=== PATIENT | female | born 1960 | race Caucasian/White ===

== ENCOUNTER 2022-07-12 06:39 | Outpatient (CLI) | payer BC, SELFPAY ==
--- NOTE | ~2022-07-12 | US_ITS ---
US art doppler w press LE BI INDICATION: Peripheral vascular disease TECHNIQUE: Segmental pressures and plethysmographic and Doppler waveforms of the brachial and lower e xtremity arteries were obtained. COMPARISON: None. FINDINGS: Right and left brachial artery pressures of 144 mm Hg and 148 mm Hg, respectively, are concordant (no rmal difference <= 30 mmHg). The right ankle-brachial index (SOTO) is 1.1 (normal >= 0.9-1.0). The right great toe-brachial index ( TBI) is 0.55 (normal >= 0.60). The left SOTO is 1.1. The left TBI is 0.74. IMPRESSION: 1. Normal bilateral ankle-brachial indices. 2: Mildly decreased right toe brachial index measuring 0.55, consistent with mild peripheral arteria l disease. Reviewed, dictated and finalized at location A. IMPRESSION: 1. Normal bilateral ankle-brachial indices. 2: Mildly decreased right toe brachial index measuring 0.55, consistent with m ild peripheral arterial disease.
--- NOTE | ~2022-07-12 | CT_ITS ---
EXAMINATION: CT abdomen pelvis w con DATE: 07/12/2022 08:03 INDICATION: Hernia right lower abdomen. Abdomen pain. TECHNIQUE: Computed tomography (CT) of the abdomen and pelvis was performed with 100 cc Omnipaque 350 intravenous contrast. The dose-length product was 454.30 mGy-cm. Automated exposure control and iter ative reconstruction technique were employed. COMPARISON: No prior studies for comparison. FINDINGS: Lung bases are unremarkable. Heart size normal. No significant pleural or pericardial effus ion. There are [place] hernia is of the right lower abdominal wall and the umbilical region. The co jayne abuts the right lateral abdominal wall hernia without evidence for obstruction. Nodular appearance to the liver surface, consistent with cirrhosis. Gallbladder contains stones. Ther e are calcified granulomas of the spleen. There is an accessory splenule. The adrenal glands and kidn eys are unremarkable. Gallbladder is present. No free air or free fluid. Nonobstructive bowel pattern with moderate colonic fecal loading. No significant vascular abnormality. No lymphadenopathy. Mild l umbar spondylosis. No acute osseous abnormality. IMPRESSION: 1. Ventral hernias right lower abdomen lateral to the umbilicus as well as a second hernia at the umb ilicus. Both hernias are [place]. The colon abuts the lateral hernia without evidence for obstructi on. 2: Cholelithiasis. 3.: Cirrhosis of the liver. Reviewed, dictated and finalized at location A. IMPRESSION: 1. Ventral hernias right lower abdomen lateral to the umbilicus as well as a se cond hernia at the umbilicus. Both hernias are [place]. The colon abuts the l ateral hernia without evidence for obstruction. 2: Cholelithiasis. 3.: Cirrhosis of the liver.
[2022-07-12 07:16] LABS: Estimated Glomerular Filt Rate > 60
== END 2022-07-12 06:40 | disposition home or self-care (01) ==
PROVIDERS: PCP Emergency Medicine; Visit Provider Emergency Medicine
DX: R10.9 Unspecified abdominal pain (principal); K43.9 Ventral hernia without obstruction or gangrene; K80.20 Calculus of gallbladder without cholecystitis without obstruction; K74.60 Unspecified cirrhosis of liver
CPT/HCPCS: 74177; 93923; Q9967

== ENCOUNTER 2022-08-07 09:54 | Outpatient (CLI) | payer BC, SELFPAY ==
--- NOTE | ~2022-08-07 | NM_ITS ---
EXAMINATION: NM hepatobiliary wo pharm DATE: 08/07/2022 12:54 INDICATION: Assess for chronic cholecystitis COMPARISON: None. TECHNIQUE: 4.9 mCi Tc-99m mebrofenin (Choletec) was administered intravenously. Scintigraphic images of the abdomen were obtained for one hour. At the 1 hour time point, the patient drank 8 oz Ensure, and imaging was continued for 60 minutes. Gallbladder ejection fraction was calculated by the technol ogist. FINDINGS: There is normal clearance of radiotracer from the blood pool. There is homogeneous tracer u ptake by the liver. Activity progresses to the bowel and gallbladder. The gallbladder ejection fract ion (GBEF) is 66%. Note that with this technique, normal GBEF >= 33%. IMPRESSION: 1. Normal hepatobiliary scan Reviewed, dictated and finalized at location A.
== END 2022-08-07 09:55 | disposition home or self-care (01) ==
PROVIDERS: PCP Emergency Medicine; Visit Provider Surgery
DX: K81.1 Chronic cholecystitis (principal)
CPT/HCPCS: 78226; A9537

== ENCOUNTER 2022-10-20 10:34 | Emergency (ER) | payer BC, SELFPAY ==
--- NOTE | ~2022-10-20 | XR_ITS ---
EXAMINATION: XR foot RT min 3V DATE: 10/20/2022 11:41 INDICATION: Right foot injury and pain. TECHNIQUE: 4 views of right foot were obtained. COMPARISON: None. FINDINGS: There is an intra-articular fracture of lateral head of second proximal phalanx in near-galina tomic alignment. There is mild osteoarthritis of some of the interphalangeal joints and midfoot joint s. There is an enthesophyte at plantar aspect of calcaneal tuberosity. IMPRESSION: 1. Intra-articular fracture of head of second proximal phalanx. Reviewed, dictated and finalized at location A. MAN
[2022-10-20 10:52] VITALS: BP 131/78; PULSE 102; RESP 20; TEMP 36.2; O2SAT 100
--- NOTE | 2022-10-20 12:34 | ED.LOWEXIN ---
HPI - Extremity Injury (Lower) General Chief Complaint: Extremity Injury, Lower Stated Complaint: Broken toe Time Seen by Provider: 10/20/22 11:19 History of Present Illness HPI Narrative: 62-year-old female with a history of diet-controlled diabetes and peripheral neuropathy in her lower extremities presents to the emergency room for evaluation of pain to her right second toe, swelling and a draining blister. Patient states 2 weeks ago she fell off a ladder and injured her toe. Has been splinting it with gauze and athletic tape. States that she noticed a blister appear yesterday and began draining purulent drainage this morning. Also notes some streaking at the base of the toe. Patient has peripheral neuropathy and has no pain associated with her injury. Related Data Allergies Allergy/AdvReac Type Severity Reaction Status Date / Time Penicillins Allergy Mild Rash Verified 10/17/22 08:30 Review of Systems Review of Systems: CONSTITUTIONAL: Denies fever, chills, or sweats. EYES: Denies visual changes, redness, or discharge. ENT: Denies rhinorrhea, congestion, sore throat, or otalgia. CARDIOVASCULAR: Denies chest pain, palpitations, or edema. RESPIRATORY: Denies cough or dyspnea. GASTROINTESTINAL: Denies abdominal pain, nausea, vomiting, or diarrhea. GENITOURINARY: Denies dysuria or hematuria. SKIN: Denies rash or itching. MUSCULOSKELETAL: Denies back pain, joint pain, or myalgia. NEUROLOGIC: Denies headache, numbness, dizziness, or weakness. PSYCHIATRIC: Denies anxiety or depression. [facility] Past Medical History Medical History Cancer Melanoma on foot Diabetes Surgical History Surgical History H/O: hysterectomy History of removal of ovarian cyst Hx of foot surgery Family History Family History Other Breast cancer Diabetes mellitus Social History Social History Smoking status: Former smoker Tobacco type: cigarettes Smoking end date: 10/20/09 Additional smoking assessment comments: 2 ppd x 35 years Alcohol intake: current Spiritual care concerns: No Exam Narrative: GENERAL: Well-appearing, well-nourished, no physical limitations, and in no acute distress. HEAD: Normocephalic, atraumatic. EYES: Conjunctivae normal, PERRLA and EOMI. CHEST: Clear to auscultation. No respiratory distress. No wheezes rales or rhonchi. HEART: Regular rate and rhythm. No murmur heard. Normal peripheral pulses. EXTREMITIES: right toe: NTTP with erythema and swelling over the PIP joint. Bulla noted to medial surface of 2nd digit with minimal lymphangitic spread approximately. Neurovascular is intact distally. SKIN: Warm, dry, no rash. No noted wounds NEURO: No focal deficits. Alert and oriented x3. MAEW. CN's II-XI intact bilaterally, normal gait PSYCH: Cooperative. Normal mood and affect. Course Vital Signs Vital signs: Vital Signs Temperature 36.2 C L 10/20/22 10:52 Pulse Rate 102 H 10/20/22 10:52 Respiratory Rate 10/20/22 10:52 Blood Pressure 131/78 10/20/22 10:52 Pulse Oximetry 10/20/22 10:52 Oxygen Delivery Room Air 10/20/22 10:52 Temperature 36.2 C L 10/20/22 10:52 Pulse Rate 102 H 10/20/22 10:52 Respiratory Rate 10/20/22 10:52 Blood Pressure 131/78 10/20/22 10:52 Pulse Oximetry 10/20/22 10:52 Oxygen Delivery Room Air 10/20/22 10:52 Discharge Plan Discharge Clinical Impression: Cellulitis of toe of right foot, Fracture of right toe Patient Disposition: Home, Self-Care Condition: Stable Instructions: Antibiotic Form, Cellulitis (ED) Prescriptions: New sulfamethoxazole-trimethoprim 800-160 mg tablet 2 tablet PO Q12H Qty: 28 0RF No Action gabapentin [Neurontin] 300 mg capsule 300 mg PO DAILY Qty: 30 2
== END 2022-10-20 13:14 | disposition home or self-care (01) ==
PROVIDERS: Emergency Provider Nurse Practitioner Family; PCP Emergency Medicine
DX: L03.031 Cellulitis of right toe (principal); S92.511A Displaced fracture of proximal phalanx of right lesser toe(s), initial encounter for closed fracture; E11.42 Type 2 diabetes mellitus with diabetic polyneuropathy; Z90.710 Acquired absence of both cervix and uterus; Z85.820 Personal history of malignant melanoma of skin; Z87.891 Personal history of nicotine dependence; W11.XXXA Fall on and from ladder, initial encounter
CPT/HCPCS: 73630; 99283

== ENCOUNTER 2022-10-22 10:23 | Outpatient (CLI) | payer BC, SELFPAY ==
--- NOTE | 2022-10-22 10:33 | ECG_ITS ---
Measurements Intervals [place] Rate: 87 P: 58 ND: 145 QRS: -52 QRSD: 107 T: 30 QT: 398 QTc: 481 Interpretive Statements SINUS RHYTHM INCOMPLETE RIGHT BUNDLE BRANCH BLOCK LEFT ANTERIOR FASCICULAR BLOCK CANNOT RULE OUT SEPTAL INFARCT, AGE INDETERMINATE BORDERLINE T WAVE ABNORMALITY- INFERIOR LEADS ABNORMAL ECG NO PREVIOUS ECG AVAILABLE FOR COMPARISON Electronically Signed On 10-22-2022 11:48:10 SURGICAL INSTRUMENT MECHANIC by Rajat Rubin D.O.
[2022-10-22 11:03] LABS: Anion Gap 5 mmol/L (8-16); Blood Urea Nitrogen 16 mg/dL (7-17); Calcium 8.8 mg/dL (8.4-10.2); Carbon Dioxide 30 mmol/L (22-30); Chloride 95 mmol/L (98-107); Estimated Glomerular Filt Rate > 60; Glucose 363 mg/dL (65-110); Potassium 5.4 mmol/L (3.4-5.0); Sodium 130 mmol/L (137-145)
== END 2022-10-22 10:24 | disposition home or self-care (01) ==
LOC: ANHSURGERY 10:27
PROVIDERS: Anesthesiology; PCP Emergency Medicine; Visit Provider Surgery
DX: Z01.818 Encounter for other preprocedural examination (principal); K43.2 Incisional hernia without obstruction or gangrene; E11.9 Type 2 diabetes mellitus without complications; I45.2 Bifascicular block; R94.31 Abnormal electrocardiogram [ECG] [EKG]
CPT/HCPCS: 36415; 80048; 86850; 86900; 86901; 93005

== ENCOUNTER 2022-11-04 10:42 | Outpatient (CLI) | payer BC, SELFPAY ==
[2022-11-04 11:12] LABS: Alanine Aminotransferase 39 U/L (6-35); Albumin Level 4.3 g/dL (3.5-5.1); Alkaline Phosphatase 160 U/L (38-126); Anion Gap 5 mmol/L (8-16); Aspartate Amino Transferase 40 U/L (14-36); Blood Urea Nitrogen 12 mg/dL (7-17); Calcium 8.9 mg/dL (8.4-10.2); Carbon Dioxide 30 mmol/L (22-30); Chloride 95 mmol/L (98-107); Cholesterol 246 mg/dL (0-200); Estimated Glomerular Filt Rate > 60; Glucose 330 mg/dL (65-110); HDL Direct 57 mg/dL; Potassium 4.2 mmol/L (3.4-5.0); Sodium 130 mmol/L (137-145); Triglycerides 115 mg/dL (<150)
[2022-11-04 11:23] LABS: LDL Cholesterol Direct 138 mg/dL
[2022-11-04 11:34] LABS: Hemoglobin A1C 11.6 % (<5.7)
== END 2022-11-04 10:43 | disposition home or self-care (01) ==
LOC: ANHLAB 10:43
PROVIDERS: PCP Emergency Medicine; Visit Provider Emergency Medicine
DX: E11.9 Type 2 diabetes mellitus without complications (principal); I10 Essential (primary) hypertension
CPT/HCPCS: 36415; 80053; 80061; 83036

== ENCOUNTER 2022-12-20 07:35 | Outpatient (RCR) | payer BC, SELFPAY ==
[2022-11-12 12:30] VITALS: BMI 22.9
== END 2023-02-03 13:19 | disposition home or self-care (01) ==
LOC: ANHWOC 07:35
PROVIDERS: PCP Emergency Medicine; Visit Provider Emergency Medicine
DX: E13.621 Other specified diabetes mellitus with foot ulcer (principal); L97.509 Non-pressure chronic ulcer of other part of unspecified foot with unspecified severity
CPT/HCPCS: 99213; 99214; A9270; G0463

== ENCOUNTER 2023-02-11 09:27 | Outpatient (CLI) | payer BC, SELFPAY ==
[2023-02-11 10:09] LABS: Hemoglobin A1C 5.7 % (<5.7)
== END 2023-02-11 09:28 | disposition home or self-care (01) ==
LOC: ANHLAB 09:28
PROVIDERS: PCP Emergency Medicine; Visit Provider Emergency Medicine
DX: E11.9 Type 2 diabetes mellitus without complications (principal)
CPT/HCPCS: 36415; 83036

== ENCOUNTER 2023-04-01 11:00 | Outpatient (RCR) | payer BC, MEDICARE, SELFPAY ==
[2023-04-01 10:47] VITALS: BMI 22.1
[2023-04-01 11:50] VITALS: BMI 22.1
== END 2023-05-26 10:45 | disposition home or self-care (01) ==
LOC: ANHDMC 11:00
PROVIDERS: PCP Emergency Medicine; Visit Provider Internal Medicine Endocrinology, Diabetes & Metabolism
DX: E11.65 Type 2 diabetes mellitus with hyperglycemia (principal); Z71.3 Dietary counseling and surveillance; Z71.89 Other specified counseling
CPT/HCPCS: 97802; G0108

== ENCOUNTER 2023-07-15 07:39 | Outpatient (CLI) | payer BC, MEDICARE, SELFPAY ==
[2023-07-15 08:54] LABS: Alanine Aminotransferase 39 U/L (6-35); Albumin Level 4.4 g/dL (3.5-5.1); Alkaline Phosphatase 104 U/L (38-126); Anion Gap 5 mmol/L (8-16); Aspartate Amino Transferase 44 U/L (14-36); Bilirubin,Total 0.8 mg/dL (0.2-1.3); Blood Urea Nitrogen 21 mg/dL (7-17); Calcium 9.1 mg/dL (8.4-10.2); Carbon Dioxide 31 mmol/L (22-30); Chloride 102 mmol/L (98-107); Cholesterol 225 mg/dL (0-200); Estimated Glomerular Filt Rate > 60; Glucose 121 mg/dL (65-110); HDL Direct 71 mg/dL; Sodium 138 mmol/L (137-145); Triglycerides 93 mg/dL (<150)
[2023-07-15 09:05] LABS: LDL Cholesterol Direct 115 mg/dL
[2023-07-18 10:30] LABS: Vitamin D 1,25 (OH)2 Total 28 pg/mL (18-72); Vitamin D2 1,25 (OH)2 <8 pg/mL; Vitamin D3 1,25 (OH)2 28 pg/mL
== END 2023-07-15 07:40 | disposition home or self-care (01) ==
PROVIDERS: PCP Emergency Medicine; Referring Provider Internal Medicine Endocrinology, Diabetes & Metabolism; Visit Provider Emergency Medicine
DX: E55.9 Vitamin D deficiency, unspecified (principal); E11.9 Type 2 diabetes mellitus without complications; Z13.220 Encounter for screening for lipoid disorders
CPT/HCPCS: 36415; 80053; 80061; 82652

== ENCOUNTER 2023-09-19 08:39 | Outpatient (CLI) | payer BC, MEDICARE, SELFPAY ==
[2023-09-19 09:30] LABS: Alanine Aminotransferase 36 U/L (6-35); Albumin Level 4.3 g/dL (3.5-5.1); Alkaline Phosphatase 107 U/L (38-126); Anion Gap 8 mmol/L (8-16); Aspartate Amino Transferase 44 U/L (14-36); Bilirubin,Total 0.8 mg/dL (0.2-1.3); Blood Urea Nitrogen 16 mg/dL (7-17); Calcium 9.2 mg/dL (8.4-10.2); Carbon Dioxide 28 mmol/L (22-30); Chloride 104 mmol/L (98-107); Cholesterol 213 mg/dL (0-200); Estimated Glomerular Filt Rate > 60; Glucose 113 mg/dL (65-110); HDL Direct 63 mg/dL; Potassium 4.2 mmol/L (3.4-5.0); Sodium 140 mmol/L (137-145); Triglycerides 74 mg/dL (<150)
[2023-09-19 09:41] LABS: LDL Cholesterol Direct 105 mg/dL
[2023-09-19 10:18] LABS: Vitamin D 25 Hydroxy 37.6 ng/mL
== END 2023-09-19 08:40 | disposition home or self-care (01) ==
PROVIDERS: PCP Emergency Medicine; Visit Provider Emergency Medicine
DX: E55.9 Vitamin D deficiency, unspecified (principal); E11.9 Type 2 diabetes mellitus without complications; E78.5 Hyperlipidemia, unspecified
CPT/HCPCS: 36415; 80053; 80061; 82306; 83036

== ENCOUNTER 2023-10-21 13:24 | Emergency (ER) | payer BC, MEDICARE, SELFPAY ==
[2023-10-21 13:36] VITALS: BP 148/80; PULSE 81; RESP 16; TEMP 36.4; O2SAT 100
--- NOTE | 2023-10-21 16:14 | ED.NAVMDI ---
HPI - Nausea/Vomiting/Diarrhea General Chief complaint: Nausea/Vomiting/Diarrhea Stated complaint: diarrhea x7days Time Seen by Provider: 10/21/23 16:14 Source: patient and family Mode of arrival: ambulatory Limitations: no limitations History of Present Illness HPI Narrative: PATIENT IS 63 YEARS OLD WHITE FEMALE CAME TO THE EMERGENCY ROOM BY PRIVATE CAR WITH HER COMPLAINING OF DIARRHEA FOR THE LAST 7 DAYS ON AVERAGE 3 TO 7 TIMES A DAY, WATERY STOOL, BROWN, DENIES ANY BLOOD IN IT, FEVER, CHILLS, NAUSEA, VOMITING OR ABDOMINAL PAIN INTERMITTENT LOWER ABDOMINAL CRAMPS Related Data Home Medications Medication Instructions Recorded Confirmed biotin 1,000 mcg chewable tablet 5,000 mcg PO DAILY 10/10/23 10/10/23 glimepiride 1 mg tablet 0.5 mg PO QAM 10/10/23 10/10/23 multivitamin (Daily Multi-Vitamin 1 tablet PO DAILY 10/10/23 10/10/23 tablet) Allergies Allergy/AdvReac Type Severity Reaction Status Date / Time metformin Allergy Intermediate Diarrhea Verified 10/10/23 10:49 Penicillins Allergy Mild Rash Verified 10/10/23 10:49 glimepiride AdvReac Intermediate Headache Verified 10/10/23 10:49 PMFSH Past Medical History Medical History Cancer Melanoma on foot Diabetes Surgical History Surgical History H/O: hysterectomy History of removal of ovarian cyst Hx of foot surgery Family History Family History Other Breast cancer Diabetes mellitus Social History Social History Smoking status: Former smoker Tobacco type: cigarettes Smoking end date: 10/20/09 Additional smoking assessment comments: 2 ppd x 35 years Alcohol intake: current Do You Feel Safe in your Home?: Yes Lack of Transportation: No Lack of Food: Never True Current Housing: I Have Housing Concerned About Future Housing: No Difficulty Paying Gas/Electric Bills: No Difficulty Paying for Meds: No Currently Unemployed: No Education: High School Diploma/GED Living arrangements: with family Spiritual care concerns: No Course Vital Signs Vital signs: Vital Signs Temperature 36.4 C L 01/02/24 13:36 Pulse Rate 81 10/21/23 13:36 Respiratory Rate 16 10/21/23 13:36 Blood Pressure 148/80 H 10/21/23 13:36 Pulse Oximetry 100 10/21/23 13:36 Oxygen Delivery Room Air 10/21/23 13:36 Temperature 36.6 C 10/21/23 17:30 Pulse Rate 83 10/21/23 17:30 Respiratory Rate 18 10/21/23 17:30 Blood Pressure 145/83 H 10/21/23 17:30 Pulse Oximetry 98 10/21/23 17:30 Oxygen Delivery Room Air 10/21/23 13:36 MDM - Nausea/Vomiting/Diarrhea MDM Narrative Medical decision making narrative: PATIENT CAME TO THE ED WITH INTERMITTENT DIARRHEA OVER THE LAST 7 DAYS VITAL SIGNS ARE STABLE PHYSICAL EXAMINATION IS UNREMARKABLE DIFFERENTIAL DIAGNOSIS DEHYDRATION, ELECTROLYTE IMBALANCE, STRESS RELATED DIARRHEA. WORKUP TODAY SHOWED NO ACUTE ABNORMALITY TO EXPLAIN PATIENT CONDITION. PATIENT WILL BE ADVISED TO TAKE IMODIUM NEEDED, TO CONTACT DR. ANDERS FOR FOLLOW-UP. AND TO ENCOURAGE FLUID INTAKE. THE PT WAS DISCHARGED TO HOME.THE PT,S CONDITION UPON DISCHARGE WAS FAIR,EDUCATION WAS PROVIDED TO THE PT IN REFERENCE TO THE FINAL IMPRESSION,DISCHARGE STUDY RESULTS,TREATMENT,PROGNOSIS AND NEED FOR FOLLOW UP . Differential Diagnosis Differential diagnosis: Likely other ( ABOVE) Medical Records Attestation: I reviewed the patient's medical records. Lab Data Attestation: I reviewed the patient's lab results. 10/21/23 16:56 10/21/23 16:56 Labs: Lab Results 10/21/23 10/21/23 Range/Units 16:41 16:56 WBC 4.2 L (4.5-10.0) K/mm3 RBC 4.84 (4.2-5.4) M/mm3 Hgb 14.4 (12.0-15.0) g/dL Hct 42.8 (37.0-47.0) % MCV 88.4 (80-100) fl [facility]
[2023-10-21 16:36] VITALS: BP 157/93; PULSE 91
[2023-10-21 16:38] VITALS: BP 137/95; PULSE 92
[2023-10-21 16:39] VITALS: BP 120/78; PULSE 98
[2023-10-21 16:56] LABS: Appearance Urine Clear (Clear); Bacteria Urine None Seen /hpf; Bilirubin Urine Negative (Negative); Blood Urine Negative (Negative); Color Urine Yellow (Yellow); Glucose Urine UA Negative (Negative); Ketones Urine 1+ mg/dL (Negative); Leukocyte Esterase Ur 1+ LEU/UL (Negative); Nitrate Urine Negative (Negative); Non Pathogenic Casts 0-2; Protein Urine Negative (Negative); RBC Urine 0-2 /hpf (0-2); Specific Grav Ur 1.018 (1.001-1.035); Squamous Epithelial Cell Urine Occasional /hpf (Few); Urobilinogen Urine 0.2 mg/dL (<2.0); pH Urine 5.5 (5.0-9.0)
[2023-10-21 16:58] LABS: Add Urine Microscopic? YES
[2023-10-21 17:05] LABS: Basophils Percent Auto 0.2 % (0.2-1.2); Eosinophils Absolute Auto 0.1 K/mm3 (0-0.3); Eosinophils Percent Auto 3.1 % (0-4.4); Hematocrit 42.8 % (37.0-47.0); Hemoglobin 14.4 g/dL (12.0-15.0); Immature Granulocyte Absolute 0.01 K/mm3 (0.00-0.031); Immature Granulocyte Percent A 0.2 % (0-0.5); Immature Platelet Fraction Pct 2.7 % (0.9-11.2); Lymphocytes Absolute Auto 1.06 K/mm3 (0.9-3.2); Lymphocytes Percent Auto 25.5 % (18.3-44.2); Mean Corpuscular HGB Conc 33.6 g/dl (32-36); Mean Corpuscular Hemoglobin 29.8 pg (26-34); Mean Corpuscular Volume 88.4 fl (80-100); Mean Platelet Volume 9.9 fl (7.4-10.4); Monocytes Absolute Auto 0.3 K/mm3 (0.1-0.6); Monocytes Percent Auto 7.9 % (2.6-8.5); Neutrophils Absolute Auto 2.6 K/mm3 (1.3-6.7); Neutrophils Percent Auto 63.1 % (45.5-73.1); Platelet Count Result 109 k/mm3 (150-375); Red Blood Count 4.84 M/mm3 (4.2-5.4); Red Cell Distribution Width 12.9 % (11.5-14.5); White Blood Count 4.2 K/mm3 (4.5-10.0)
[2023-10-21 17:12] LABS: Alanine Aminotransferase 28 U/L (6-35); Alkaline Phosphatase 90 U/L (38-126); Anion Gap 7 mmol/L (8-16); Aspartate Amino Transferase 40 U/L (14-36); Bilirubin,Total 0.9 mg/dL (0.2-1.3); Blood Urea Nitrogen 14 mg/dL (7-17); Calcium 8.7 mg/dL (8.4-10.2); Carbon Dioxide 28 mmol/L (22-30); Chloride 103 mmol/L (98-107); Estimated CRCL calculation 86 ml/min; Estimated Glomerular Filt Rate > 60; Glucose 85 mg/dL (65-110); Lipase 139 U/L (23-300); Sodium 138 mmol/L (137-145)
[2023-10-21] MEDS: SODIUM CHLORIDE 0.9% IV 1,000 ML 999 ML IV CONT (17:26)
[2023-10-21 17:30] VITALS: BP 145/83; PULSE 83; RESP 18; TEMP 36.6; O2SAT 98
[2023-10-21 17:40] LABS: Influenza A QL RT-PCR Negative (Negative); Influenza B QL RT-PCR Negative (Negative); RSV RNA, RT-PCR Negative (Negative); SARS-CoV-2 RNA PCR Negative (Negative)
[2023-10-21 18:39] VITALS: BP 149/83; PULSE 82; RESP 16; TEMP 36.7; O2SAT 98
== END 2023-10-21 19:13 | disposition home or self-care (01) ==
PROVIDERS: Emergency Provider Emergency Medicine; PCP Emergency Medicine
DX: R19.7 Diarrhea, unspecified (principal); Z87.891 Personal history of nicotine dependence; Z20.822 Contact with and (suspected) exposure to COVID-19; Z79.84 Long term (current) use of oral hypoglycemic drugs
CPT/HCPCS: 36415; 80053; 81001; 83690; 85025; 85055; 87086; 87088; 87637; 96360; 96361; 99283; J7030

== ENCOUNTER 2023-11-28 13:42 | Outpatient (CLI) | payer BC, MEDICARE, SELFPAY ==
[2023-11-28 14:44] LABS: Hematocrit 43.9 % (37.0-47.0); Hemoglobin 14.6 g/dL (12.0-15.0); Mean Corpuscular HGB Conc 33.3 g/dl (32-36); Mean Corpuscular Hemoglobin 29.3 pg (26-34); Platelet Count Result 90 k/mm3 (150-375); Red Blood Count 4.99 M/mm3 (4.2-5.4); Red Cell Distribution Width 12.9 % (11.5-14.5)
[2023-11-28 14:55] LABS: INR 1.1; Prothrombin Time 14.7 Seconds (11.1-14.7)
[2023-11-28 14:59] LABS: Iron 107 ug/dL (37-170)
[2023-11-28 15:00] LABS: Alanine Aminotransferase 41 U/L (6-35); Albumin Level 4.4 g/dL (3.5-5.1); Alkaline Phosphatase 106 U/L (38-126); Anion Gap 6 mmol/L (8-16); Aspartate Amino Transferase 49 U/L (14-36); Bilirubin,Total 0.8 mg/dL (0.2-1.3); Blood Urea Nitrogen 14 mg/dL (7-17); Calcium 9.3 mg/dL (8.4-10.2); Carbon Dioxide 31 mmol/L (22-30); Chloride 103 mmol/L (98-107); Cholesterol 151 mg/dL (0-200); Estimated Glomerular Filt Rate > 60; Glucose 86 mg/dL (65-110); HDL Direct 57 mg/dL; Potassium 4.2 mmol/L (3.4-5.0); Sodium 140 mmol/L (137-145); Triglycerides 84 mg/dL (<150)
[2023-11-28 15:03] LABS: Creatinine Urine 20.3 mg/dL
[2023-11-28 15:03] LABS: Bilirubin Indirect 0.5 mg/dL (0-1.1); CRP < 0.5 mg/dL (<1.0)
[2023-11-28 15:08] LABS: Percent Iron Saturation 31 % (20-50)
[2023-11-28 15:10] LABS: MALB Creatinine Ratio < 29.6 mg/g (0-30); Microalbumin Urine Random < 6.0 mg/L (0-16.7)
[2023-11-28 15:11] LABS: LDL Cholesterol Direct 70 mg/dL
[2023-11-28 15:16] LABS: Vitamin D 25 Hydroxy 40.3 ng/mL
[2023-11-28 15:31] LABS: Hepatitis B Surface Antigen Negative (Negative)
[2023-11-28 15:37] LABS: HAV RESULT Negative (Negative); Hepatitis B Core IgM Result Negative (Negative)
[2023-11-28 15:49] LABS: Hepatitis B Surface Anti Res Positive; Hepatitis C Virus Antibody Negative (Negative)
[2023-11-28 16:44] LABS: Erythrocyte Sedimentation Rate 9 mm/hr (0-20)
[2023-12-01 14:01] LABS: C-Peptide 2.06 ng/mL (0.80-3.85)
[2023-12-02 05:52] LABS: Mitochondrial (M2) Ab (IgG) <=20.0 U (<=20.0)
[2023-12-02 16:43] LABS: Glutamic acid decarboxylase AA <5 IU/mL (<5)
[2023-12-02 20:50] LABS: Ceruloplasmin 31 mg/dL (18-53)
[2023-12-03 04:35] LABS: LKM 1 Antibody <=20.0 U (<=20.0)
[2023-12-03 09:47] LABS: Alpha-1-Antitrypsin, QN 184 mg/dL (83-199)
[2023-12-03 12:43] LABS: Actin Antibody (IgG) <20 U (<20)
[2023-12-04 03:44] LABS: Hepatitis A Antibody Total Nonreactive (Nonreactive)
[2023-12-05 11:47] LABS: ALT 28 U/L (6-29); Alpha-2-Macroglobulin 302 mg/dL (106-279); Apolipoprotein A1 178 mg/dL (101-198); Fibrosis Score 0.78; Fibrosis Stage F4; GGT 58 U/L (3-65); Haptoglobin <8 mg/dL (43-212); Necroinflammat Act Grade A0-A1; Total Bilirubin 0.5 mg/dL (0.2-1.2)
== END 2023-11-28 13:43 | disposition home or self-care (01) ==
PROVIDERS: PCP Emergency Medicine; Referring Provider Internal Medicine; Visit Provider Nurse Practitioner
DX: R74.01 Elevation of levels of liver transaminase levels (principal); E11.9 Type 2 diabetes mellitus without complications; D69.6 Thrombocytopenia, unspecified; K74.60 Unspecified cirrhosis of liver
CPT/HCPCS: 36415; 80053; 80061; 80074; 81596; 82043; 82103; 82248; 82306; 82390; 82728; 83520; 83540; 83550; 84681; 85027; 85055; 85610; 85652; 86038; 86140; 86341; 86364; 86376; 86706; 86708

== ENCOUNTER 2023-12-12 07:27 | Outpatient (CLI) | payer BC, MEDICARE, SELFPAY ==
--- NOTE | ~2023-12-12 | US_ITS ---
EXAMINATION: US abdomen limited DATE: 12/12/2023 08:57 INDICATION: Cirrhosis, HCC screening TECHNIQUE: Multiple grayscale and Doppler ultrasound images of the abdomen were obtained. COMPARISON: CT, 07/12/2022 FINDINGS: The head and body of the pancreas are normal. The pancreatic tail is obscured by bowel gas. The liver demonstrates mildly coarsened echotexture. There is mild nodularity of the liver surface. No liver mass is identified. Normal hepatopetal flow in the main portal vein. A stone is present in t he gallbladder. No pericholecystic fluid or gallbladder wall thickening are identified. The gallbladd er is not distended. The normal common bile duct measures 5 mm. There was no sonographic Tom sign. IMPRESSION: 1. Cirrhosis without focal liver mass identified. 2. Cholelithiasis without evidence of cholecystitis. Reviewed, dictated and finalized at location B. UITMENT SPECIALIST
== END 2023-12-12 07:28 | disposition home or self-care (01) ==
LOC: ANHIMG 07:28
PROVIDERS: PCP Emergency Medicine; Visit Provider Nurse Practitioner
DX: K80.20 Calculus of gallbladder without cholecystitis without obstruction (principal); K74.60 Unspecified cirrhosis of liver
CPT/HCPCS: 76705

== ENCOUNTER 2024-06-15 09:13 | Outpatient (CLI) | payer BC, MEDICARE, SELFPAY ==
[2024-06-15 10:10] LABS: Cholesterol 188 mg/dL (0-200); HDL Direct 58 mg/dL; Triglycerides 102 mg/dL (<150)
[2024-06-15 10:20] LABS: LDL Cholesterol Direct 93 mg/dL
== END 2024-06-15 09:14 | disposition home or self-care (01) ==
PROVIDERS: PCP Emergency Medicine; Visit Provider Emergency Medicine
DX: E78.5 Hyperlipidemia, unspecified (principal); E55.9 Vitamin D deficiency, unspecified; Z12.31 Encounter for screening mammogram for malignant neoplasm of breast
CPT/HCPCS: 36415; 80061; 82306

== ENCOUNTER 2024-07-23 10:30 | Outpatient (CLI) | payer BC, MEDICARE, SELFPAY ==
--- NOTE | ~2024-07-23 | US_ITS ---
Limited Abdominal Sonogram: Real-time sonographic imaging of the right upper quadrant was performed. Clinical History: Cirrhosis of liver Findings: The liver demonstrates nodular contour. No mass lesion or intrahepatic biliary dilatation evident. Main portal vein demonstrates normal direction of flow. The gallbladder is well distended, a nd contains small amount of sludge. The common bile duct measures 10 mm. The visualized pancreas, ao rta, and IVC are unremarkable. Impression: Nodular contour of liver is compatible with cirrhotic change. No focal mass or intrahepatic biliary d ilatation evident. Small amount of gallbladder sludge. Reviewed, dictated and finalized at location M. Impression: Nodular contour of liver is compatible with cirrhotic change. No focal mass or intrahepatic biliary dilatation evident. Small amount of gallbladder sludge.
[2024-07-23 12:54] LABS: Alanine Aminotransferase 32 U/L (6-35); Albumin Level 4.3 g/dL (3.5-5.1); Alkaline Phosphatase 113 U/L (38-126); Anion Gap 3 mmol/L (4-12); Aspartate Amino Transferase 37 U/L (14-36); Blood Urea Nitrogen 15 mg/dL (7-17); Calcium 9.3 mg/dL (8.4-10.2); Carbon Dioxide 31 mmol/L (22-30); Chloride 106 mmol/L (98-107); Cholesterol 193 mg/dL (0-200); Estimated Glomerular Filt Rate > 60; Glucose 139 mg/dL (65-110); HDL Direct 68 mg/dL; Potassium 5.1 mmol/L (3.4-5.0); Sodium 140 mmol/L (137-145); Triglycerides 97 mg/dL (<150)
[2024-07-23 13:05] LABS: LDL Cholesterol Direct 89 mg/dL
[2024-07-23 13:23] LABS: Vitamin D 25 Hydroxy 41.8 ng/mL
== END 2024-07-23 10:31 | disposition home or self-care (01) ==
LOC: ANHIMG 10:41
PROVIDERS: PCP Emergency Medicine
DX: K74.60 Unspecified cirrhosis of liver (principal); E78.5 Hyperlipidemia, unspecified; E03.9 Hypothyroidism, unspecified; E55.9 Vitamin D deficiency, unspecified
CPT/HCPCS: 36415; 76705; 80053; 80061; 82306; 84443

== ENCOUNTER 2024-09-22 16:09 | Emergency (ER) | payer BC, MEDICARE, SELFPAY ==
--- NOTE | ~2024-09-22 | CT_ITS ---
CT abdomen pelvis w con Ordering provider: Marion Lozaon History: 64 years Female with . jaundice, hx cirrhosis . Comparison: None. Technique: CT abdomen and pelvis with IV and without oral contrast. Automated exposure control and it erative reconstruction technique were employed. The dose-length product was 600.70 mGy-cm. 100 mL Omn ipaque 350 was given IV. Findings: VISUALIZED LOWER CHEST: Normal. UPPER ABDOMINAL ORGANS: Liver: Lobulated outline of the liver which is suggestive of cirrhosis. Clinical correlation advised. Gallbladder: Cholelithiasis. Spleen: Borderline Splenomegaly. Stomach/duodenum: Normal. Pancreas: Normal. Slightly prominent pancreatic duct. Adrenals: Normal. Kidneys: Normal. PELVIC ORGANS: The bladder is overdistended. BOWEL AND MESENTERY: Colon: No evidence of diverticulitis.. Fecal material is seen in the colon suggestive of constipation . Normal appendix. Small Bowel: Normal. No obstruction. Peritoneum/mesentery: No free air or free fluid. No mesenteric lymphadenopathy. RETROPERITONEUM: Mild atheromatous disease of the abdominal aorta. No retroperitoneal lymphadenopat hy. MUSCULOSKELETAL: Superficial soft tissues: Right femoral hernia is noted with fat content. The superficial soft tissue s are normal. Bones: Normal spine. IMPRESSION: 1. No evidence of appendicitis, diverticulitis or intestinal obstruction. 2. Cholelithiasis. 3. Liver cirrhosis. 4. Borderline splenomegaly. Reviewed, dictated and finalized at location A. ING INSPECTOR
[2024-09-22 16:26] VITALS: BP 153/89; PULSE 86; RESP 17; TEMP 36.4; O2SAT 99
--- NOTE | 2024-09-22 16:54 | ED.GENADULT ---
HPI - General Adult General Chief complaint: Recheck/Abnormal Lab/Rx <GOPI Dos Santos Last Filed: 09/22/24 17:04> Stated complaint: I'm jaundiced <GOPI Dos Santos Last Filed: 09/22/24 17:04> Time Seen by Provider: 09/22/24 16:54 <GOPI Dos Santos Last Filed: 09/22/24 17:04> Focused HPI: Patient is a 64 y/o female who presents to the ED with c/o jaundice. Patient reports she has not felt well since Friday with chills, congestion, dark urine, weakness, fatigue, intermittent nausea, decreased appetite. She then began noticing herself looking jaundice yesterday morning. Hx of liver cirrhosis. Sees Daly Collier NP hepatology @ [facility]. States she has never been jaundiced before. Denies abdominal pain or bloating. Denies fevers, cough, weight loss. GENERAL: Mildly ill-appearing, well-nourished, and in no acute distress. HEAD: Normocephalic, atraumatic. CHEST: Clear to auscultation. ?No respiratory distress. HEART: Regular rate and rhythm.? ABD: No focal TTP, no palpable masses. Normoactive BS. NEURO: ?Alert and oriented x3. Patient screened in triage and initial orders placed.? ?Additional care and disposition to be based upon?diagnostic testing and treatment. <GOPI Dos Santos Last Filed: 09/22/24 17:04> Source: patient <GOPI Dos Santos Last Filed: 09/22/24 17:04> Mode of arrival: ambulatory <GOPI Dos Santos Last Filed: 09/22/24 17:04> Limitations: no limitations <GOPI Dos Santos Last Filed: 09/22/24 17:04> Related Data Home medications: Home Medications Medication Instructions Recorded Confirmed biotin 1,000 mcg chewable tablet 5,000 mcg PO DAILY 10/10/23 09/14/24 multivitamin (Daily Multi-Vitamin 1 tablet PO DAILY 10/10/23 09/14/24 tablet) <Marion Lozano PA-C - Last Filed: 09/22/24 17:04> Allergies/adverse reactions: Allergies Allergy/AdvReac Type Severity Reaction Status Date / Time metformin Allergy Intermediate Diarrhea Verified 09/14/24 08:56 Penicillins Allergy Mild Rash Verified 09/14/24 08:56 <Marion Lozano PA-C - Last Filed: 09/22/24 17:04> Review of Systems Review of Systems: CONSTITUTIONAL: Denies fever GASTROINTESTINAL: Reports nausea. Denies abdominal pain, vomiting, or diarrhea. GENITOURINARY: Denies dysuria <GOPI Castle Last Filed: 09/22/24 22:12> All systems reviewed & are unremarkable except as noted in HPI and below <Charlotte Jimenez PA-C - Last Filed: 09/22/24 22:12> [facility] Past Medical History Medical History: Medical History Cancer Melanoma on foot Change in bowel habits Cholelithiasis Diabetes Elevated AST (SGOT) Mucus in stool Thrombocytopenia <GOPI Dos Santos Last Filed: 09/22/24 17:04> Surgical History Surgical History: Surgical History H/O: hysterectomy History of removal of ovarian cyst Hx of foot surgery <Marion Lozano PA-C - Last Filed: 09/22/24 17:04> Family History Family History: Family History Other Breast cancer Diabetes mellitus <Marion Lozano PA-C - Last Filed: 09/22/24 17:04> Social History Social History: Social History Smoking status: Former smoker Tobacco type: cigarettes Smoking end date: 10/20/09 Additional smoking assessment comments: 2 ppd x 35 years Alcohol intake: current Do You Feel Safe in your Home?: Yes Lack of Transportation: No Lack of Food: Never True Current Housing: I Have Housing Concerned About Future Housing: No Difficulty Paying Gas/Electric Bills: No Difficulty Paying for Meds: No Currently Unemployed: No Education: High School Diploma/GED Living arrangements: with family Spiritual care concerns: No <Marion Lozano PA-C - Last Filed: 09/22/24 17:04> Exam Narrative: GENERAL: Well-appearing, well-nourished, and in no acute distress. HEAD: Normocephalic, atraumatic. EYES: EOMI. ENT: Nares clear, no rhinorrhea or epistaxis. Mucous membranes moist. CHEST: Clear to auscultation. No respiratory distress. No wheezes rales or rhonchi HEART: Regular rate and rhythm. No murmur heard. Normal peripheral pulses. ABDOMEN: Soft, nontender, nondistended, normal active bowel sounds. EXTREMITIES: Normal range of motion. No edema. SKIN: Warm, dry, no rash. NEURO: No focal deficits. Alert and oriented x3. PSYCH: Normal mood and affect <Charlotte Jimenez PA-C - Last Filed: 09/22/24 22:12> Course Course Emergency Course: patient updated on workup and agrees with plan of care <Charlotte Jimenez PA-C - Last Filed: 09/22/24 22:12> Consultations Consultation #1: Spoke with GI Dr. Mathew about patient and workup. Recommends further outpatient evaluation with her liver specialist <Charlotte Jimenez PA-C - Last Filed: 09/22/24 22:12> Date: 09/22/24 <GOPI Castle Last Filed: 09/22/24 22:12> Vital Signs Vital signs: Vital Signs Temperature 97.6 F 09/22/24 16:26 Pulse Rate 86 09/22/24 16:26 Respiratory Rate 17 09/22/24 16:26 Blood Pressure 153/89 H 09/22/24 16:26 Pulse Oximetry 99 09/22/24 16:26 Temperature 97.6 F 09/22/24 21:02 Pulse Rate 86 09/22/24 21:02 Respiratory Rate 14 09/22/24 21:02 Blood Pressure 166/101 H 09/22/24 21:02 Pulse Oximetry 98 09/22/24 21:02 <GOPI Dos Santos Last Filed: 09/22/24 17:04> Vital Signs Temperature 97.6 F 09/22/24 16:26 Pulse Rate 86 09/22/24 16:26 Respiratory Rate 17 09/22/24 16:26 Blood Pressure 153/89 H 09/22/24 16:26 Pulse Oximetry 99 09/22/24 16:26 Temperature 97.6 F 09/22/24 21:02 Pulse Rate 86 09/22/24 21:02 Respiratory Rate 14 09/22/24 21:02 Blood Pressure 166/101 H 09/22/24 21:02 Pulse Oximetry 98 09/22/24 21:02 <GOPI Castle Last Filed: 09/22/24 22:12> Medical Decision Making MDM Narrative Medical decision making narrative: MSE by ALVIN in triage. <GOPI Dos Santos Last Filed: 09/22/24 17:04> MSE by ALVIN in triage. Patient presents to the ER for jaundice. She is afebrile and nontoxic appearing. Her vitals are stable. Cbc without leukocytosis. Shows mild hemoconcentration. Metabolic panel with normal kidney function. INR is normal. Liver enzymes are elevated with an AST of 140 ALT of 247. Total bilirubin 4.2. Lipase is normal. Urine without evidence of infection. Influenza, RSV and COVID screens are negative. CT abdomen pelvis shows cirrhosis, cholelithiasis. Spoke with GI Dr. Mathew about patient and workup. Recommends further outpatient evaluation with her liver specialist. Patient updated on her workup and agrees with plan of care. Patient was given warnings to return to the ER <GOPI Castle Last Filed: 09/22/24 22:12> Vital Signs Vital Signs: Vital Signs Temperature 97.6 F 09/22/24 16:26 Pulse Rate 86 09/22/24 16:26 Respiratory Rate 17 09/22/24 16:26 Blood Pressure 153/89 H 09/22/24 16:26 Pulse Oximetry 99 09/22/24 16:26 Temperature 97.6 F 09/22/24 21:02 Pulse Rate 86 09/22/24 21:02 Respiratory Rate 14 09/22/24 21:02 Blood Pressure 166/101 H 09/22/24 21:02 Pulse Oximetry 98 09/22/24 21:02 <Marion Lozano PA-C - Last Filed: 09/22/24 17:04> Vital Signs Temperature 97.6 F 09/22/24 16:26 Pulse Rate 86 09/22/24 16:26 Respiratory Rate 17 09/22/24 16:26 Blood Pressure 153/89 H 09/22/24 16:26 Pulse Oximetry 99 09/22/24 16:26 Temperature 97.6 F 09/22/24 21:02 Pulse Rate 86 09/22/24 21:02 Respiratory Rate 14 09/22/24 21:02 Blood Pressure 166/101 H 09/22/24 21:02 Pulse Oximetry 98 09/22/24 21:02 <GOPI Castle Last Filed: 09/22/24 22:12> Lab Data Lab results reviewed: Yes I reviewed the patient's lab results. <Charlotte Jimenez PA-C - Last Filed: 09/22/24 22:12> Result diagrams: 09/22/24 17:12 09/22/24 17:12 <GOPI Dos Santos Last Filed: 09/22/24 17:04> Labs: Lab Results 09/22/24 09/22/24 Range/Units 17:12 19:28 WBC 4.5 (4.5-10.0) K/mm3 RBC 5.03 (4.2-5.4) M/mm3 Hgb 15.2 H (12.0-15.0) g/dL Hct 44.8 (37.0-47.0) % MCV 89.1 (80-100) fl MCH 30.2 (26-34) pg MCHC 33.9 (32-36) g/dl RDW 13.2 (11.5-14.5) % Plt Count 94 L (150-375) k/mm3 MPV 10.8 H (7.4-10.4) fl Immature Gran % (Auto) 0.2 (0-0.5) % Neut % (Auto) 67.3 (45.5-73.1) % Lymph % (Auto) 19.5 (18.3-44.2) % [place] % (Auto) 8.3 (2.6-8.5) % Eos % (Auto) 4.3 (0-4.4) % Baso % (Auto) 0.4 (0.2-1.2) % Lymph # (Auto) 0.87 L (0.9-3.2) K/mm3 [place] # (Auto) 0.4 (0.1-0.6) K/mm3 Eos # (Auto) 0.2 (0-0.3) K/mm3 Baso # (Auto) 0.0 (0.0-0.1) K/mm3 Abs Immat Gran (auto) 0.01 (0.00-0.031) K/mm3 Absolute Neuts (auto) 3.0 (1.3-6.7) K/mm3 Absolute Nucleated RBC 0.000 (0.0-0.012) K/mm3 Nucleated RBC % 0.0 (0.0-0.2) % % Immature Plt Fraction 4.6 (0.9-11.2) % PT 13.6 (11.1-14.7) Seconds INR 1.0 APTT 28.8 (22.3-36.8) Seconds Sodium 138 (137-145) mmol/L Potassium 3.8 (3.4-5.0) mmol/L Chloride 105 (98-107) mmol/L Carbon Dioxide 28 (22-30) mmol/L Anion Gap 5 (4-12) mmol/L BUN 14 (7-17) mg/dL Creatinine 0.60 L (0.7-1.0) mg/dL Estim Creat Clear Calc 85 ml/min Estimated GFR > 60 (59 - ) Glucose 118 H (65-110) mg/dL Lactic Acid 0.9 (0.7-2.0) mmol/L Calcium 8.7 (8.4-10.2) mg/dL Magnesium 2.0 (1.6-2.3) mg/dL Total Bilirubin 4.2 H (0.2-1.3) mg/dL AST 140 H (14-36) U/L ALT 247 H (6-35) U/L Alkaline Phosphatase 185 H (38-126) U/L Total Protein 8.0 (6.3-8.2) g/dL Albumin 4.3 (3.5-5.1) g/dL Lipase 299 (23-300) U/L Urine Color Yellow (Yellow) Urine Appearance Clear (Clear) Urine pH 6.0 (5.0-9.0) Ur Specific [place] 1.043 H (1.001-1.035) Urine Protein Negative (Negative) mg/dL Urine Glucose (UA) Negative (Negative) mg/dL Urine Ketones Negative (Negative) mg/dL Ur Blood (Man) Negative (Negative) Urine Nitrate Negative (Negative) Urine Bilirubin Negative (Negative) Urine Urobilinogen 2.0 H (<2.0) mg/dL Add Ur Microanalysis Reviewed Leukocyte Esterase Rfl 1+ H (Negative) DINORAH/UL Urine RBC 0-2 (0-2) /hpf Urine WBC 0-5 (0-3) /hpf Ur Squamous Epith Cells None seen (Few) /hpf Urine Bacteria None seen /hpf Urine Casts 0-2 Influenza A (RT-PCR) Negative (Negative) Influenza B (RT-PCR) Negative (Negative) RSV (RT-PCR) Negative (Negative) SARS-CoV-2 RNA (RT-PCR) Negative (Negative) <Marion Lozano PA-C - Last Filed: 09/22/24 17:04> Lab Results 09/22/24 09/22/24 Range/Units 17:12 19:28 WBC 4.5 (4.5-10.0) K/mm3 RBC 5.03 (4.2-5.4) M/mm3 Hgb 15.2 H (12.0-15.0) g/dL Hct 44.8 (37.0-47.0) % MCV 89.1 (80-100) fl MCH 30.2 (26-34) pg MCHC 33.9 (32-36) g/dl RDW 13.2 (11.5-14.5) % Plt Count 94 L (150-375) k/mm3 MPV 10.8 H (7.4-10.4) fl Immature Gran % (Auto) 0.2 (0-0.5) % Neut % (Auto) 67.3 (45.5-73.1) % Lymph % (Auto) 19.5 (18.3-44.2) % [place] % (Auto) 8.3 (2.6-8.5) % Eos % (Auto) 4.3 (0-4.4) % Baso % (Auto) 0.4 (0.2-1.2) % Lymph # (Auto) 0.87 L (0.9-3.2) K/mm3 [place] # (Auto) 0.4 (0.1-0.6) K/mm3 Eos # (Auto) 0.2 (0-0.3) K/mm3 Baso # (Auto) 0.0 (0.0-0.1) K/mm3 Abs Immat Gran (auto) 0.01 (0.00-0.031) K/mm3 Absolute Neuts (auto) 3.0 (1.3-6.7) K/mm3 Absolute Nucleated RBC 0.000 (0.0-0.012) K/mm3 Nucleated RBC % 0.0 (0.0-0.2) % % Immature Plt Fraction 4.6 (0.9-11.2) % PT 13.6 (11.1-14.7) Seconds INR 1.0 APTT 28.8 (22.3-36.8) Seconds Sodium 138 (137-145) mmol/L Potassium 3.8 (3.4-5.0) mmol/L Chloride 105 (98-107) mmol/L Carbon Dioxide 28 (22-30) mmol/L Anion Gap 5 (4-12) mmol/L BUN 14 (7-17) mg/dL Creatinine 0.60 L (0.7-1.0) mg/dL Estim Creat Clear Calc 85 ml/min Estimated GFR > 60 (59 - ) Glucose 118 H (65-110) mg/dL Lactic Acid 0.9 (0.7-2.0) mmol/L Calcium 8.7 (8.4-10.2) mg/dL Magnesium 2.0 (1.6-2.3) mg/dL Total Bilirubin 4.2 H (0.2-1.3) mg/dL AST 140 H (14-36) U/L ALT 247 H (6-35) U/L Alkaline Phosphatase 185 H (38-126) U/L Total Protein 8.0 (6.3-8.2) g/dL Albumin 4.3 (3.5-5.1) g/dL Lipase 299 (23-300) U/L Urine Color Yellow (Yellow) Urine Appearance Clear (Clear) Urine pH 6.0 (5.0-9.0) Ur Specific [place] 1.043 H (1.001-1.035) Urine Protein Negative (Negative) mg/dL Urine Glucose (UA) Negative (Negative) mg/dL Urine Ketones Negative (Negative) mg/dL Ur Blood (Man) Negative (Negative) Urine Nitrate Negative (Negative) Urine Bilirubin Negative (Negative) Urine Urobilinogen 2.0 H (<2.0) mg/dL Add Ur Microanalysis Reviewed Leukocyte Esterase Rfl 1+ H (Negative) DINORAH/UL Urine RBC 0-2 (0-2) /hpf Urine WBC 0-5 (0-3) /hpf Ur Squamous Epith Cells None seen (Few) /hpf Urine Bacteria None seen /hpf Urine Casts 0-2 Influenza A (RT-PCR) Negative (Negative) Influenza B (RT-PCR) Negative (Negative) RSV (RT-PCR) Negative (Negative) SARS-CoV-2 RNA (RT-PCR) Negative (Negative) <GOPI Castle Last Filed: 09/22/24 22:12> Imaging Data Radiologist's impression: ITS Impressions Abdomen/Pelvis CT 09/22/24 21:01 IMPRESSION: 1. No evidence of appendicitis, diverticulitis or intestinal obstruction. 2. Cholelithiasis. 3. Liver cirrhosis. 4. Borderline splenomegaly. <GOPI Castle Last Filed: 09/22/24 22:12> Critical Care Time Critical Care Time Critical Care Time: No <GOPI Castle Last Filed: 09/22/24 22:12> Discharge Plan Discharge Clinical Impression: Hyperbilirubinemia, Transaminitis <GOPI Dos Santos Last Filed: 09/22/24 17:04> Patient Disposition: Home, Self-Care <GOPI Dos Santos Last Filed: 09/22/24 17:04> Condition: Stable <GOPI Dos Santos Last Filed: 09/22/24 17:04> Instructions: Abdominal Pain (ED), Jaundice (ED) <GOPI Dos Santos Last Filed: 09/22/24 17:04> Additional Instructions: Return to the ER if you experience fever, abdominal pain with nausea and vomiting, you are unable to keep down liquids or solids, blood in the stool, pain or burning with urination, blood in the urine or any other symptoms that are concerning to you Follow up your liver doctor. Call in the morning to make a follow up appointment for further evaluation <Marion Lozano PA-C - Last Filed: 09/22/24 17:04> Prescriptions: No Action Januvia 50 mg tablet See Rx Instructions .ROUTE .COMPLEX Qty: 90 2RF Dose Instruction: TAKE 1 TABLET BY MOUTH DAILY Rx Instructions: TAKE 1 TABLET BY MOUTH DAILY glimepiride 1 mg tablet 1 mg PO QAM Qty: 90 1RF Rx Instructions: Uses a sliding scale take 0.5 mg once before breakfast as needed if blood sugar is above 120 before breakfast and take full tablet 1 mg if blood sugar is above 160 gabapentin 300 mg capsule See Rx Instructions .ROUTE .COMPLEX Qty: 90 2RF Dose Instruction: TAKE 1 CAPSULE BY MOUTH DAILY Rx Instructions: TAKE 1 CAPSULE BY MOUTH DAILY biotin 1,000 mcg tablet,chewable 5,000 mcg PO DAILY multivitamin [Daily Multi-Vitamin] Tablet 1 tablet PO DAILY glucose 4 gram tablet,chewable 16 g PO Q15M PRN (Reason: hypoglycemia) Qty: 90 0RF Rx Instructions: until symptoms of low blood sugar are controlled Baqsimi 3 mg/actuation spray,non-aerosol 3 mg intranasal ONCE Qty: 1 0RF Rx Instructions: as a single dose atorvastatin 10 mg tablet See Rx Instructions .ROUTE .COMPLEX Qty: 90 2RF Dose Instruction: TAKE 1 TABLET BY MOUTH DAILY Rx Instructions: TAKE 1 TABLET BY MOUTH DAILY alprazolam [Xanax] 0.5 mg tablet 0.5 mg PO BID PRN (Reason: anxiety) Qty: 30 1RF <Marion Lozano PA-C - Last Filed: 09/22/24 17:04> Follow-up/Referrals: Dustin Mahmood MD [Primary Care Provider] - <Marion Lozano PA-C - Last Filed: 09/22/24 17:04>
[2024-09-22 17:32] LABS: Basophils Percent Auto 0.4 % (0.2-1.2); Eosinophils Absolute Auto 0.2 K/mm3 (0-0.3); Eosinophils Percent Auto 4.3 % (0-4.4); Hematocrit 44.8 % (37.0-47.0); Hemoglobin 15.2 g/dL (12.0-15.0); Immature Granulocyte Absolute 0.01 K/mm3 (0.00-0.031); Immature Granulocyte Percent A 0.2 % (0-0.5); Immature Platelet Fraction Pct 4.6 % (0.9-11.2); Lymphocytes Absolute Auto 0.87 K/mm3 (0.9-3.2); Lymphocytes Percent Auto 19.5 % (18.3-44.2); Mean Corpuscular HGB Conc 33.9 g/dl (32-36); Mean Corpuscular Hemoglobin 30.2 pg (26-34); Mean Corpuscular Volume 89.1 fl (80-100); Mean Platelet Volume 10.8 fl (7.4-10.4); Monocytes Absolute Auto 0.4 K/mm3 (0.1-0.6); Monocytes Percent Auto 8.3 % (2.6-8.5); Neutrophils Percent Auto 67.3 % (45.5-73.1); Platelet Count Result 94 k/mm3 (150-375); Red Blood Count 5.03 M/mm3 (4.2-5.4); Red Cell Distribution Width 13.2 % (11.5-14.5); White Blood Count 4.5 K/mm3 (4.5-10.0)
[2024-09-22 17:34] LABS: Alanine Aminotransferase 247 U/L (6-35); Albumin Level 4.3 g/dL (3.5-5.1); Alkaline Phosphatase 185 U/L (38-126); Anion Gap 5 mmol/L (4-12); Aspartate Amino Transferase 140 U/L (14-36); Bilirubin,Total 4.2 mg/dL (0.2-1.3); Blood Urea Nitrogen 14 mg/dL (7-17); Calcium 8.7 mg/dL (8.4-10.2); Carbon Dioxide 28 mmol/L (22-30); Chloride 105 mmol/L (98-107); Estimated CRCL calculation 85 ml/min; Estimated Glomerular Filt Rate > 60; Glucose 118 mg/dL (65-110); Lactic Acid Reflex 0.9 mmol/L (0.7-2.0); Lipase 299 U/L (23-300); Potassium 3.8 mmol/L (3.4-5.0); Sodium 138 mmol/L (137-145)
[2024-09-22 17:36] LABS: Partial Thromboplastin Time 28.8 Seconds (22.3-36.8); Prothrombin Time 13.6 Seconds (11.1-14.7)
[2024-09-22 18:07] LABS: Influenza A QL RT-PCR Negative (Negative); Influenza B QL RT-PCR Negative (Negative); RSV RNA, RT-PCR Negative (Negative); SARS-CoV-2 RNA PCR Negative (Negative)
[2024-09-22 19:39] VITALS: BP 146/85; PULSE 81; RESP 16; TEMP 36.2; O2SAT 97
[2024-09-22 20:31] LABS: Add Urine Microscopic? YES; Appearance Urine Clear (Clear); Bacteria Urine None Seen /hpf; Bilirubin Urine Negative (Negative); Blood Urine Negative (Negative); Color Urine Yellow (Yellow); Glucose Urine UA Negative (Negative); Ketones Urine Negative (Negative); Leukocyte Esterase Ur 1+ LEU/UL (Negative); Need Manual Microscopic Reviewed; Nitrate Urine Negative (Negative); Non Pathogenic Casts 0-2; Protein Urine Negative (Negative); RBC Urine 0-2 /hpf (0-2); Specific Grav Ur 1.043 (1.001-1.035); Squamous Epithelial Cell Urine None Seen /hpf (Few); WBC Urine 0-5 /hpf (0-3)
[2024-09-22 21:02] VITALS: BP 166/101; PULSE 86; RESP 14; TEMP 36.4; O2SAT 98
== END 2024-09-22 22:15 | disposition home or self-care (01) ==
PROVIDERS: Physician Assistant; Emergency Provider Physician Assistant; PCP Emergency Medicine
DX: E80.6 Other disorders of bilirubin metabolism (principal); R74.01 Elevation of levels of liver transaminase levels; Z20.822 Contact with and (suspected) exposure to COVID-19; E11.9 Type 2 diabetes mellitus without complications; Z85.820 Personal history of malignant melanoma of skin; Z87.891 Personal history of nicotine dependence; Z90.710 Acquired absence of both cervix and uterus; K80.20 Calculus of gallbladder without cholecystitis without obstruction; K74.60 Unspecified cirrhosis of liver; Z79.84 Long term (current) use of oral hypoglycemic drugs; Z79.899 Other long term (current) drug therapy
CPT/HCPCS: 36415; 74177; 80053; 81001; 83605; 83690; 83735; 85025; 85055; 85610; 85730; 87086; 87637; 99284; Q9967

== ENCOUNTER 2024-10-16 09:48 | Outpatient (CLI) | payer BC, MEDICARE, SELFPAY ==
[2024-10-16 10:25] LABS: Basophils Percent Auto 0.6 % (0.2-1.2); Eosinophils Absolute Auto 0.1 K/mm3 (0-0.3); Hematocrit 42.6 % (37.0-47.0); Hemoglobin 14.4 g/dL (12.0-15.0); Immature Granulocyte Absolute 0.01 K/mm3 (0.00-0.031); Immature Granulocyte Percent A 0.3 % (0-0.5); Immature Platelet Fraction Pct 3.8 % (0.9-11.2); Lymphocytes Absolute Auto 1.11 K/mm3 (0.9-3.2); Lymphocytes Percent Auto 31.4 % (18.3-44.2); Mean Corpuscular HGB Conc 33.8 g/dl (32-36); Mean Corpuscular Hemoglobin 30.3 pg (26-34); Mean Corpuscular Volume 89.5 fl (80-100); Mean Platelet Volume 10.6 fl (7.4-10.4); Monocytes Absolute Auto 0.3 K/mm3 (0.1-0.6); Monocytes Percent Auto 8.8 % (2.6-8.5); Neutrophils Percent Auto 54.9 % (45.5-73.1); Platelet Count Result 85 k/mm3 (150-375); Red Blood Count 4.76 M/mm3 (4.2-5.4); Red Cell Distribution Width 12.6 % (11.5-14.5); White Blood Count 3.5 K/mm3 (4.5-10.0)
[2024-10-16 10:34] LABS: INR 1.1; Prothrombin Time 14.8 Seconds (11.1-14.7)
[2024-10-16 10:35] LABS: Alanine Aminotransferase 38 U/L (6-35); Albumin Level 4.2 g/dL (3.5-5.1); Alkaline Phosphatase 177 U/L (38-126); Anion Gap 2 mmol/L (4-12); Aspartate Amino Transferase 43 U/L (14-36); Blood Urea Nitrogen 13 mg/dL (7-17); Carbon Dioxide 28 mmol/L (22-30); Chloride 108 mmol/L (98-107); Estimated Glomerular Filt Rate > 60; Glucose 129 mg/dL (65-110); Potassium 4.1 mmol/L (3.4-5.0); Sodium 138 mmol/L (137-145)
[2024-10-21 08:09] LABS: Alpha Fetoprotein Tumor Marker 3.9 ng/mL
== END 2024-10-16 09:49 | disposition home or self-care (01) ==
LOC: ANHLAB 09:54
PROVIDERS: PCP Emergency Medicine
DX: K74.60 Unspecified cirrhosis of liver (principal)
CPT/HCPCS: 36415; 80053; 82105; 85025; 85055; 85610

== ENCOUNTER 2024-12-28 11:42 | Outpatient (CLI) | payer BC, MEDICARE, SELFPAY ==
[2024-12-28 12:45] LABS: Basophils Percent Auto 0.7 % (0.2-1.2); Eosinophils Absolute Auto 0.2 K/mm3 (0-0.3); Hemoglobin 14.9 g/dL (12.0-15.0); Immature Granulocyte Absolute 0.01 K/mm3 (0.00-0.031); Immature Granulocyte Percent A 0.2 % (0-0.5); Immature Platelet Fraction Pct 3.8 % (0.9-11.2); Lymphocytes Absolute Auto 1.32 K/mm3 (0.9-3.2); Lymphocytes Percent Auto 30.8 % (18.3-44.2); Mean Corpuscular HGB Conc 33.9 g/dl (32-36); Mean Corpuscular Hemoglobin 30.1 pg (26-34); Mean Corpuscular Volume 88.9 fl (80-100); Mean Platelet Volume 10.8 fl (7.4-10.4); Monocytes Absolute Auto 0.3 K/mm3 (0.1-0.6); Neutrophils Absolute Auto 2.5 K/mm3 (1.3-6.7); Neutrophils Percent Auto 57.3 % (45.5-73.1); Platelet Count Result 79 k/mm3 (150-375); Red Blood Count 4.95 M/mm3 (4.2-5.4); Red Cell Distribution Width 12.6 % (11.5-14.5); White Blood Count 4.3 K/mm3 (4.5-10.0)
[2024-12-28 12:56] LABS: Alanine Aminotransferase 39 U/L (6-35); Albumin Level 4.5 g/dL (3.5-5.1); Alkaline Phosphatase 111 U/L (38-126); Anion Gap 9 mmol/L (4-12); Aspartate Amino Transferase 43 U/L (14-36); Bilirubin,Total 0.9 mg/dL (0.2-1.3); Blood Urea Nitrogen 14 mg/dL (7-17); Calcium 9.6 mg/dL (8.4-10.2); Carbon Dioxide 29 mmol/L (22-30); Chloride 102 mmol/L (98-107); Estimated Glomerular Filt Rate > 60; Glucose 136 mg/dL (65-110); Potassium 4.8 mmol/L (3.4-5.0); Sodium 140 mmol/L (137-145)
--- OUTSIDE RECORDS SUMMARY | 2024-12-28 13:22 | XMS_ITS | Patient Health Summary ---
Author Organization [facility] Address [address] [place] [address] Care Team Providers Care Demand Planning Analyst Name Role Phone Dustin Mahmood MD Primary Care Provider [phone] Note from [facility],non-owned Affiliates and Associated Physician Practices is amultiple site organization consisting of ambulatory clinics and hospital sitesin [place], [place], [place] and [place]. This disclosure is being madepursuant to the Care Everywhere program and may not contain all information available regarding this patient. Last updated 18.[facility] Allergies * Aspirin(Itching) * Penicillins(Rash) -Medium Criticality Medications * Be aware that medications may not be up to date on this document. Alwaysverify current medications with the patient. * ALPRAZolam (Xanax) 0.5 MG tablet(Started 11/29/2023) Take 1 (one) tablet by mouth 2 times daily as needed anxiety * atorvastatin (Lipitor) 10 MG tablet(Started 11/22/2023) Take 1 (one) tablet by mouth once daily * gabapentin (Neurontin) 300 MG capsule(Started 11/26/2023) Take 1 (one) capsule by mouth once daily * glimepiride (Amaryl) 1 MG tablet(Started 11/01/2023) Take 2 (two) tablets by mouth 2 times daily, before breakfast and supper * Baqsimi One Pack 3 MG/DOSE POWD(Started 10/14/2023) USE 1 SPRAY IN EACH NOSTRIL ONCE * Glucose 4-6 GM-MG(Started 10/13/2023) CHEW AND SWALLOW 4 TABLETS BY MOUTH EVERY 15 MINUTES NEEDED FOR HYPOGLYCEMIA UNTIL SYMPTOMS OF LOW BLOOD SUGAR ARE CONTROLLED * Januvia 50 MG tablet(Started 12/02/2023) Take 1 (one) tablet by mouth once daily Active Problems Problem Noted Date Diagnosed Date Cirrhosis of liver without ascites 12/19/2023 Type 2 diabetes mellitus wit h neurologic complication, without long-term current use of insulin 01/20/2023 12/19/2023 PVD (peripheral vascular disease) 01/20/2023 12/19/2023 Social History Tobacco Use Types Packs/Day Years Used Date Smoking Tobacco: Former Cigarettes Q uit: 12/18/2005 Smokeless Tobacco: Never Tobacco Cessation:Counseling Given: Not Answered Alcohol Use Standard Drinks/Week Comments Not Currently 0 (1 standard drink = 0.6 oz pur e alcohol) no drinks for a year now Sex and Gender Information Value Date Recorded Sex Assigned at Not on file Gender Identity Not on file Sexual Orientation Not on file Last Filed Vital Signs Vital Sign Reading Time Taken Comments Blood Pressure 157/76 09/24/2024 11:24 AM AUTOMOBILE WASHER STEAM bp stated she been having headach after she fall .denies hitting her head. provider notified. Pulse 81 09/24/2024 11:24 AM AUTOMOBILE W[employer] STEAM Temperature 36.1 C (97 F) 09/24/2024 11:24 AM AUTOMOBILE W[employer]ER STEAM Respiratory Rate 18 07/06/2024 1:12 PM CDT Oxygen Saturation 99% 09/24/2024 11: 24 AM AUTOMOBILE WASHER STEAM Inhaled Oxygen Concentration - - Weight 81.2 kg (179 lb) 09/24/2024 11:2 4 AM AUTOMOBILE WASH[employer] STEAM Height 170.2 cm (5' 7 ) 09/24/2024 11:2 4 AM AUTOMOBILE WASHER STEAM Body Mass Index 28.04 09/24/2024 11:24 AM AUTOMOBILE WASHER STEAM Procedures * NM LIVER ELASTOGRAPHY(Performed 07/06/2024) Performed for Cirrhosis of liver without ascites, unspecified hepatic cirrhosis type (HCC) * HEPATITIS SCREEN ACUTE (EXTERNAL RESULTS)(Performed 11/28/2023) * LIPID PROFILE (EXTERAL RESULT ENTRY)(Performed 11/28/2023) * COMP MET PANEL (EXTERNAL RESULT ENTRY)(Performed 11/28/2023) * CBC W DIFF (EXTERNAL RESULT ENTRY)(Performed 11/28/2023) Results * NM LIVER ELASTOGRAPHY (07/06/2024 1:25 PM CDT) Narrative Ki Gillette MD - 07/06/2024 1:25 PM CDT Ki Gillette MD 07/06/2024 1:44 PM Diagnosis: Cirrhosis of liver without ascites, unspecified hepatic cirrhosis type (HCC) RN verified patient NPO for prior 3 hours. Procedure explained. Date of Exam: 07/06/2024 Liver Stiffness: (LSM, kPa) median: 17.6 IQR/Median% (ideally < 30%): 8% CAP (controlled attenuation parameter): 194 Technical Difficulty: None Ordering Provider: DAMION Irby Phone Fax Fibroscan interpretation: I have personally reviewed the Fibroscan report and associated tracings. The calculated Liver Stiffness Measurement (LSM, kPa) indicates that: The probability of advanced liver fibrosis is: high. The loss of ultrasound signal, (controlled attenuation parameter, CAP [dB/m]), indicates that the probability of hepatic steatosis is: low. Ki Choi MD The following criteria are used to indicate the probability of advanced (stage 3-4) fibrosis: < 7.0 kPa: low 7.0-8.9 kPa: low to moderate 9.0-14.9 kPa: moderate 15-20 kPa: high > 20 kPa: very high Liver stiffness > 20 kPa is also associated with a high probability of complications of portal hypertension including varices and ascites. Liver stiffness > 50 kPa is associated with a high risk of variceal bleeding. These interpretations are based on the following published data: Mal PJ, Ozzie M, Eunice M, et al. Accuracy of FibroScan controlled attenuation parameter and liver stiffness measurement in assessing steatosis and fibrosis in patients with nonalcoholic fatty liver disease. Gastroenterology 2019;156:5687-2572. Gadiel MS, Ellie R, Van Natta ML, et al. Vibration-controlled transient elastography to assess fibrosis and steatosis in patients with nonalcoholic fatty liver disease. Clin Gastroenterol Hepatol 2019;17:156-163. Note that scores have been developed that incorporate the Fibroscan liver stiffness measurement from large cohorts of patients with liver biopsies to further refine the ability of Fibroscan to identify patients with MASH and advanced fibrosis. These include the FAST (Fibroscan-AST) score (Abby, 2021) and the Agile3+ and Agile4 scores (Stephanie, 202). Abby TA, Van Shari ML, Johana M, Filippo A, et al. Validation of the accuracy of the FAST score for detecting patients with at-risk nonalcoholic steatohepatitis (LYLE) in a [place] cohort and comparison to other non-invasive algorithms. PLoS ONE (2021) 17: [id number]. Stephanie AJ, Shaina J, Mitch ZM, et al. Enhanced diagnosis of advanced fibrosis and cirrhosis in individuals with NAFLD using FibroScan-based Agile scores. J Hepatol (2022) 78: 247-259. Fibroscan LSM can also be used with laboratory parameters without formulas to assess prognosis. According to the Baveno-VII criteria (Alexander, 2021), Fibroscan LSM ?15 kPa plus a platelet count of ?295m159/L rules out clinically significant portal hypertension (sensitivity and negative predictive value >90%) in patients with compensated advanced chronic liver disease. Alexander R, Jose J, Roel-Jefry G, Maria M T, Rena C on behalf of the Baveno VII Faculty. Baveno VII--Renewing consensus in portal hypertension. J Hepatol (2021) 76: 959-974 Assessing the likelihood of advanced fibrosis in patients with intermediate liver stiffness measurement (LSM) by Fibroscan (e.g., 8-15 kPa) can be improved by also calculating the FIB-4 score (Nhi et al. Hepatology Communications 2019;3:1559-0668) or NAFLD Fibrosis score (Montes et al. Clinical Gastroenterology and Hepatology 2019;17:4848-1767 using routine clinical data. Note: 1. Fibroscan cannot reliably identify earlier stages of fibrosis (ie distinguish F0 from F1 and F2) and thus a histologic stage cannot be predicted from the Fibroscan reading. 2. Liver stiffness can be increased by factors other than fibrosis including passive congestion, infiltrative processes, active alcoholism, recent moderate alcohol consumption in the 2 weeks before the exam, biliary obstruction and marked inflammation. The interpretation of the Fibroscan result provided above may not have taken such clinical factors into account. Disease etiology also influences Fibroscan cutoff values for fibrosis stages and the following cutoffs have been proposed (Mehdi et al, Clin Gastro Hepatol 2015; 13:27-36): Cutoffs for Stage 3 and Stage 4 fibrosis respectively: Hepatitis B: >9 and >11.7 kPa Hepatitis C: >9.5 and >12.5 kPa HCV-HIV: >11 and >14 kPa Cholestatic liver diseases: >10 and >17.9 kPa MASLD/MASH: >10 and >14 kPa CAP estimates of steatosis: normal <200 dB/m mild 200 to 250 dB/m moderate 250-290 dB/m substantial > 290 dB/m (Note that Fibroscan is not a quantitative measure of liver fat.) These criteria are estimates and may change as additional supporting data becomes available. (This additional interpretive data was last updated 02/22/23.) [email or web address] Daly Collier [employer] MEMBER PROCEDURE/IN NOR SURGICAL ORDERABLES * (ABNORMAL) CBC W DIFF (EXTERNAL RESULT ENTRY) (11/28/2023 2:33 PM AUTOMOBILE WASHER STEAM) WBC (EXTERNAL RESULT) 5.0 10^3/ul OTHER LAB Hemoglobin (EXTERNAL RESULT) 14.6 g/dl OTHER LAB Hematocrit (EXTERNAL RESULT) 43.9 % OTHER LAB Platelets (EXTERNAL RESULT) 90(A) 10^3/ul OTHER LAB Neutrophil Absolute (EXTERNAL RESULT) OTHER LAB Blood BLOOD SPECIMEN / Unknown 11/28/2023 2:33 PM AUTOMOBILE W[employer]ER [employer] Historical Provider LAB - HEMATOLOGY ORDERABLES Performing Organization Address [facility] Co de Phone Number OTHER LAB * HEPATITIS SCREEN ACUTE (EXTERNAL RESULTS) (11/28/2023 2:33 PM AUTOMOBILE W[employer]) Hepatitis A Virus Antibody IgM (EXTERNAL RESULT) Negative OTHER LAB Hepatitis B Core Virus Antibody IgM (EXTERNAL RESULT) Negative OTHER LAB Hepatitis B Virus Surface Antigen (EXTERNAL RESULT) OTHER LAB Hepatitis C Antibody Screen (EXTERNAL RESULT) OTHER LAB Hepatitis C Virus Index (EXTERNAL) Negative OTHER LAB Blood 11/28/2023 2:33 PM AUTOMOBILE W[employer] Historical Provider LAB - CHEMISTRY O RDERABLES Performing Organization Address City/[facility] Co de Phone Number OTHER LAB * (ABNORMAL) COMP MET PANEL (EXTERNAL RESULT ENTRY) (11/28/2023 2:33 PM AUTOMOBILE W[employer]) Glucose (EXTERNAL) 86 mg/dL OTHER LAB Sodium (EXTERNAL RESULT) 140 mmol/L OTHER LAB Potassium (EXTERNAL RESULT) 4.2 mmol/L OTHER LAB Chloride (EXTERNAL RESULT) 103 mmol/L OTHER LAB CO2 (EXTERNAL) 31(A) mmol/L OTHER LAB Calcium (EXTERNAL RESULT) 9.3 mg/dL OTHER LAB Anion Gap (EXTERNAL RESULT) 6(A) mmol/L OTHER LAB BUN (EXTERNAL RESULT) 14 mg/dL OTHER LAB Creatinine (EXTERNAL RESULT) 0.70 mg/dl OTHER LAB Alkaline Phosphatase (EXTERNAL RESULT) 106 U/L OTHER LAB ALT (EXTERNAL RESULT) 41(A) U/L OTHER LAB AST (EXTERNAL RESULT) 49(A) U/L OTHER LAB Protein Total (EXTERNAL RESULT) 8.0 gm/dL OTHER LAB Albumin (EXTERNAL RESULT) 4.4 gm/dL OTHER LAB Bilirubin Total (EXTERNAL RESULT) 0.8 mg/dL OTHER LAB eGFR MDRD (EXTERNAL RESULT) >60 mL/min/1.7 3m2 OTHER LAB eGFR (EXTERNAL) OTHER LAB Blood BLOOD SPECIMEN / Unknown 11/28/2023 2:33 PM AUTOMOBILE [employer] Historical Provider LAB - CHEMISTRY O KARTHIK Performing Organization Address [facility] de Phone Number OTHER LAB * LIPID PROFILE (EXTERAL RESULT ENTRY) (11/28/2023 2:33 PM AUTOMOBILE [employer]) Cholesterol (EXTERNAL RESULT) 151 mg/dL OTHER LAB Triglycerides (EXTERNAL RESULT) 84 mg/dL OTHER LAB HDL (EXTERNAL RESULT) 57 mg/dL OTHER LAB LDL (EXTERNAL RESULT) 70 mg/dL OTHER LAB VLDL (EXTERNAL RESULT) OTHER LAB Chol HDL Ratio (External Result) OTHER LAB Blood BLOOD SPECIMEN / Unknown 11/28/2023 2:33 PM AUTOMOBILE W[employer] Historical Provider LAB - CHEMISTRY O RDERAGERRY Performing Organization Address City/[facility]/ZIP Co de Phone Number OTHER LAB Care Teams Demand Planning Analyst Relationship Specialty Start Date End Date Dustin Mahmood MD [address] [address] PCP - General Internal Medicine 12/19/23
--- OUTSIDE RECORDS SUMMARY | 2024-12-28 13:22 | XMS_ITS | Referral Summary ---
Author Organization [facility] Address [address] [place] [address] Care Team Providers Care Speech Therapist Technician Name Role Phone Dustin Mahmood MD Primary Care Provider [phone] Source Comments [facility],non-owned Affiliates and Associated Physician Practices is amultiple site organization consisting of ambulatory clinics and hospital sitesin [place], [place], [place] and [place]. This disclosure is being madepursuant to the Care Everywhere program and may not contain all information available regarding this patient. Last updated 18.[facility] Encounters Date Type Department Care Team Description 12/20/2024 Orders Only [facility] - [facility] [address] [place] [place] [id number] Daly Collier, BAKED AND GRAPHITE INSPECTOR-INDIGO VAT TENDER CLOTH Cirrhosis of liver without ascites, unspecified hepatic cirrhosis type (HCC) from Last 3 Months Allergies Active Allergy Reactions Criticality Noted Date Comments Aspirin Itching 07/06/2024 Penicillins Rash Medium 01/20/2023 Medications * Be aware that medications may not be up to date on this document. Alwaysverify current medications with the patient. Medication Sig Dispensed Refills Start Date End Date Status ALPRAZolam (Xanax) 0.5 MG tablet Take 1 (one) tablet by mouth 2 times daily as needed anxiety 11/29/2023 Active atorvastatin (Lipitor) 10 MG tablet Take 1 (one) tablet by mouth once daily 11/22/2023 Active gabapentin (Neurontin) 300 MG capsule Take 1 (one) capsule by mouth once daily 11/26/2023 Active glimepiride (Amaryl) 1 MG tablet Take 2 (two) tablets by mouth 2 times daily, before breakfast and supper 11/01/2023 Active Baqsimi One Pack 3 MG/DOSE POWD USE 1 SPRAY IN EACH NOSTRIL ONCE 10/14/2023 Active Glucose 4-6 GM-MG CHEW AND SWALLOW 4 TABLETS BY MOUTH EVERY 15 MINUTES NEEDED FOR HYPOGLYCEMIA UNTIL SYMPTOMS OF LOW BLOOD SUGAR ARE CONTROLLED 10/13/2023 Active Januvia 50 MG tablet Take 1 (one) tablet by mouth once daily 12/02/2023 Active Active Problems Problem Noted Date Diagnosed Date Cirrhosis of liver without ascites 12/19/2023 Overview (07/06/2024): 07/06/24 Fibroscan [place] 194, LSM 17.6 kPa Type 2 diabetes mellitus wit h neurologic complication, without long-term current use of insulin 01/20/2023 12/19/2023 Overview (12/19/2023): Last Assessment & Plan: Type 2 diabetes being controlled with diet and medication. Continue current medical therapy. PVD (peripheral vascular disease) 01/20/2023 12/19/2023 Overview (12/19/2023): Last Assessment & Plan: Patient following up for slow healing ulcers to the right 1st and 2nd toes after obtaining a lower extremity arterial Doppler. Both lower extremities show triphasic waveforms with a right SOTO of 1.07 and a left SOTO of 1.01. She does have sufficient blood flow to heal any wounds to the feet. Continue follow-up with Dr. Mckeon. Plan follow-up as needed. 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 provider notified. Pulse 81 09/24/2024 11:24 AM JEWELRY REPAIRER Temperature 36.1 C (97 F) 09/24/2024 11:24 AM JEWELRY REPAIRER Respiratory Rate 18 07/06/2024 1:12 PM CDT Oxygen Saturation 99% 09/24/2024 11: 24 AM JEWELRY REPAIRER Inhaled Oxygen Concentration - - Weight 81.2 kg (179 lb) 09/24/2024 11:2 4 AM JEWELRY REPAIRER Height 170.2 cm (5' 7 ) 09/24/2024 11:2 4 AM JEWELRY REPAIRER Body Mass Index 28.04 09/24/2024 11:24 AM JEWELRY REPAIRER Plan of Treatment Upcoming Encounters Date Type Department Care Team (Late st Contact Info) Description 01/04/2025 11:00 AM CDT Appointment [facility] [address] [place] [phone] Daly Collier, BAKED AND GRAPHITE INSPECTOR-INDIGO VAT TENDER CLOTH [address] [address] [place] [phone] 01/04/2025 12:30 PM CDT Office Visit [facility] - [facility] [address] [place] [phone] Daly Collier, BAKED AND GRAPHITE INSPECTOR-INDIGO VAT TENDER CLOTH [address] [facility] [address] [place] [id number] Goals Goal Patient Goal Type Associated Problems Recent Progress Patient-Stated? Author Medication Management General Dorie Luong, RN Note: Expected end date: Ongoing Interventions: Take all medications as prescribed Let your doctor know right away about any changes in your medications Make sure to request a refill of your medication at least one week prior to your last dose Procedures Procedure Name Priority Date/Time Associated Diagnosis Comments COMP MET PANEL (EXTERNAL RESULT ENTRY) Routine 11/28/2023 2:33 PM JEWELRY REPAIRER from Last 3 Months or Most Recently Relevant to Health Maintenance Results * (ABNORMAL) COMP MET PANEL (EXTERNAL RESULT ENTRY) (11/28/2023 2:33 PM JEWELRY REPAIRER) Glucose (EXTERNAL) 86 mg/dL OTHER LAB Sodium [...] BLOOD SPECIMEN / Unknown 11/28/2023 2:33 PM JEWELRY REPAIRER Historical Provider LAB - CHEMISTRY O RDERABLES OTHER LAB from Last 3 Months or Most Recently Relevant to Health Maintenance Care Teams Speech Therapist Technician Relationship Specialty Start Date End Date Dustin Mahmood MD [address] [address] PCP - General Internal Medicine 12/19/23
--- OUTSIDE RECORDS SUMMARY | 2024-12-28 13:22 | XMS_ITS | Referral Summary ---
Author Organization [facility] at the [facility] Office Center Address [address] [place] [address] Care Team Providers Care Global Logistics Analyst Name Role Phone Dustin Mahmood MD Primary Care Provide r Allergies Active Allergy Reactions Criticality Noted Date Comments Penicillins Rash Medium 01/20/2023 Medications ALPRAZolam (XANAX) 0.5 mg tablet Take by mouth 2 (two) times a day as needed 3 Active gabapentin (NEURONTIN) 300 mg capsule Take 1 capsule (300 mg total) by mouth daily 3 Active metFORMIN (GLUCOPHAGE) 1,000 mg tablet Take 1 tablet (1,000 mg total) by mouth 2 (two) times a day 3 Active mupirocin (BACTROBAN) 2 % ointment APPLY TOPICALLY TO THE AFFECTED AREA TWICE DAILY 3 Active silver carbonate (NORMLGEL AG TOP) Apply topically Active Januvia 50 mg tablet Take 1 tablet (50 mg total) by mouth daily 3 Active Active Problems Problem Noted Date Diagnosed Date PVD (peripheral vascular disease) 01/20/2023 Assessment & Plan (02/11/2023 2:18 PM CDT): Patient following up for slow healing ulcers to the right 1st and 2nd toes after obtaining a lower extremity arterial Doppler. Both lower extremities show triphasic waveforms with a right SOTO of 1.07 and a left SOTO of 1.01. She does have sufficient blood flow to heal any wounds to the feet. Continue follow-up with Dr. Mckeon. Plan follow-up as needed. Assessment & Plan (01/20/2023 3:13 PM CDT): Chronic ulcerations noted to the 1st 2nd digits the medial and lateral sides. The ulcerations are stable and subcentimeter. No current signs of surrounding soft tissue skin infection. Feet are warm well perfused with palpable DP pulses and diminished PT pulses. Seen with Dr. Damon. Plan: Obtain a lower extremity arterial Doppler and referred to Podiatry Dr. Kelly for continued foot care. Type 2 diabetes mellitus wit h neurologic complication, without long-term current use of insulin 01/20/2023 Assessment & Plan (01/20/2023 3:12 PM CDT): Type 2 diabetes being controlled with diet and medication. Continue current medical therapy. Immunizations Immunization Administration Dates Next Due Influenza, Quadrivalent, Nancy l Culture-based MDCK, Preservative Free, Antibiotic Free, Intramuscular 08/13/2022,07/24/2020 Influenza, Quadrivalent, Split, Intramuscular Influenza, Trivalent, IM (MDV) 08/06/2021 Pfizer SARS-CoV-2 Monovalent Vaccination (12+ Yrs) PURPLE 12/26/2020,12/05/2020 Social History Tobacco Use Types Packs/Day Years Used Date Smoking Tobacco: Former Cigarettes Tobacco Cessation:Counseling Given: No Personal Safety Answer Date Recorded Getting School Help Needed Not on file 12/20 Comments Unknown Sex and Gender Information Value Date Recorded Sex Assigned at Not on file Legal Sex Female 8:49 AM CDT Gender Identity Not on file Sexual Orientation Not on file Last Filed Vital Signs Vital Sign Reading Time Taken Comments Blood Pressure 128/84 02/10/2023 1:42 PM CDT Pulse 89 02/10/2023 1:42 PM CDT Temperature - - Respiratory Rate - - Oxygen Saturation - - Inhaled Oxygen Concentration - - Weight 63.5 kg (140 lb) 02/10/2023 1:42 PM CDT Height 177.8 cm (5' 10 ) 02/10/2023 1:42 PM CDT Body Mass Index 20.09 02/10/2023 1:42 PM CDT Plan of Treatment Not on file Procedures Procedure Name Priority Date/Time Associated Diagnosis Comments LIPID PANEL Routine 05/12/2024 10:41 AM CDT ALBUMIN CREATININE RATIO, URINE Routine 05/12/2024 10:41 AM CDT EGFR Routine 05/12/2024 10:40 AM CDT from Last 3 Months or Most Recently Relevant to Health Maintenance Results * Albumin Creatinine Ratio, Urine (05/12/2024 10:41 AM CDT) Albumin Ur <12.0 mg/L Comment: Interpretive Data No reference range established. Current interpretive data was last revised 2019. Creatinine Ur 65.5 mg/dL [facility] Comment: Interpretive Data No reference range established. Current interpretive data was last revised 2019. Albumin Creatinine Ratio, Ur <18 1 - 29 mg/g [facility] Urine 05/12/2024 10:4 1 AM CDT 05/12/2024 11:21 AM CDT us Willy So MD LAB URINE ORDERABLES Final R esult [facility] [id number] [place] [address] * (ABNORMAL) Lipid panel (05/12/2024 10:41 AM CDT) Cholesterol 211(H) 30 - 199 mg/dL Comment: Interpretive Data Ages < or = 19 years Acceptable: <170 mg/dL Borderline high: 170-199 mg/dL High: >or= 200 mg/dL Ages > or = 20 years Desirable: <200 mg/dL Borderline high: 200-239 mg/dL High: >or= 240 mg/dL Literature References: 1. Expert Panel on Integrated Guidelines for Cardiovascular Health and Risk Reduction in Children and Adolescents. Pediatrics 2011;128:S213 2. NCEP Expert Panel. Circulation 2004;110:227 Current Interpretive Data was last revised on 2018. Triglycerides 57 <=149 mg/dL [facility] Comment: Interpretive Data Ages < or = 9 years Acceptable: <75 mg/dL Borderline high: 75-99 mg/dL High: >or= 100 mg/dL Ages 10 to 20 years Acceptable: <90 mg/dL Borderline high: 90-129 mg/dL High: >or= 130 mg/dL Ages > or = 20 years Desirable: <150 mg/dL Borderline high: 150-199 mg/dL High: 200-499 mg/dL Very high: >or= 499 mg/dL Literature References: 1. Expert Panel on Integrated Guidelines for Cardiovascular Health and Risk Reduction in Children and Adolescents. Pediatrics 2011;128:S213 2. NCEP Expert Panel. Circulation 2004;110:227 Current Interpretive Data was last revised on 2018. HDL 76 >=40 mg/dL [facility] Comment: Interpretive Data Ages < or = 19 years Acceptable: >45 mg/dL Borderline low: 40-45 mg/dL Low: <40 mg/dL Ages > or = 20 years Desirable: >or= 60 mg/dL Low: <40 mg/dL Literature References: 1. Expert Panel on Integrated Guidelines for Cardiovascular Health and Risk Reduction in Children and Adolescents. Pediatrics 2011;128:S213 2. NCEP Expert Panel. Circulation 2004;110:227 Current Interpretive Data was last revised on 2018. LDL, calculated 124 <=129 mg/dL [facility] Comment: Interpretive Data Ages < or = 19 years Acceptable: <110 mg/dL Borderline high: 110-129 mg/dL High: >or= 130 mg/dL Ages > or = 20 years Optimal: <100 mg/dL Near optimal: 100-129 mg/dL Borderline high: 130-159 mg/dL High: >160 mg/dL Literature References: 1. Expert Panel on Integrated Guidelines for Cardiovascular Health and Risk Reduction in Children and Adolescents. Pediatrics 2011;128:S213 2. NCEP Expert Panel. Circulation 2004;110:227 Current Interpretive Data was last revised on 2018. Non-HDL Cholesterol 135 mg/dL [facility] Comment: Interpretive Data Ages < or = 19 years Acceptable: <120 mg/dL Borderline high: 120-144 mg/dL High: >145 mg/dL Ages > or = 20 years When triglycerides are >200 mg/dL, Non-HDL cholesterol is a secondary target of therapy with treatment goals that are 30 mg/dL greater than the LDL cholesterol target. Literature References: 1. Expert Panel on Integrated Guidelines for Cardiovascular Health and Risk Reduction in Children and Adolescents. Pediatrics 2011;128:S213 2. NCEP Expert Panel. Circulation 2004;110:227 Current Interpretive Data was last revised on 2018. Chol/HDL ratio [address] [facility] Blood 05/12/2024 10:4 1 AM CDT 05/12/2024 11:19 AM CDT us Willy So MD LAB BLOOD ORDERABLES Final R esult Performing Organization Address City/[facility]/ZIP Co de Phone Number [facility] [address] [place] [address] * eGFR (05/12/2024 10:40 AM CDT) eGFR >90 >=60 mL/min/1. 73 m2 Comment: Interpretive Data Reference Interval Normal >/= 90 mL/min/1.73m2 Mildly decreased* 60 - 89 mL/min/1.73m2 Mildly to moderately decreased 45 - 59 mL/min/1.73m2 Moderately to severely decreased 30 - 44 mL/min/1.73m2 Severely decreased 15 - 29 mL/min/1.73m2 Kidney Failure < 15 mL/min/1.73m2 *Relative to young adult level Estimated glomerular filtration rate is determined by the 2020 CKD-EPI equation recommended by the National Kidney Foundation (A Unifying Approach to GFR Estimation: Recommendations of the NKF-ASK Task Force on Reassessing the Inclusion of Race in Diagnosing Kidney Disease, JASN 2020). The CKD-EPI equation should not be used for patients with unstable renal function and has not been validated in children and those over 70. Current interpretive data was last reviewed 2021. Blood 05/12/2024 10:4 0 AM CDT 05/12/2024 11:19 AM CDT us Fadia Horner NP LAB BLOOD ORDERABLES Final Re sult Performing Organization Address City/[facility]/ZIP Co de Phone Number [facility] [address] [employer] [place] [address] from Last 3 Months or Most Recently Relevant to Health Maintenance Insurance [employer] [place] [employer] [place] Care Teams Global Logistics Analyst Relationship Specialty Start Date End Date Dustin Mahmood MD [address] [place] [address] PCP - General Emergency Medicine 01/15/23
--- OUTSIDE RECORDS SUMMARY | 2024-12-28 13:22 | XMS_ITS | Clinical Summary ---
Author Organization [facility] Address [address] [place] [address] Care Team Providers Care Accounts Receivable Assistant Name Role Phone Dustin Mahmood MD Primary Care Provider [phone] Source Comments [facility],non-owned Affiliates and Associated Physician Practices is amultiple site organization consisting of ambulatory clinics and hospital sitesin [place], [place], [place] and [place]. This disclosure is being madepursuant to the Care Everywhere program and may not contain all information available regarding this patient. Last updated 18.[facility] Allergies Active Allergy Reactions Criticality Noted Date [...] with Dr. Mckeon. Plan follow-up as needed. Encounters Date Type Department Care Team Description 12/20/2024 Orders Only [facility] [address] [facility] [place] [phone] Daly Collier, MANAGER DRUG SAFETY-[employer] Cirrhosis of liver without ascites, unspecified hepatic cirrhosis type (HCC) from Last 3 Months Family History Medical History Relation Name Comments Diabetes - Type 2 Father Cancer - Breast Mother Relation Name Status Comments Father Mother Social History Tobacco Use Types Packs/Day Years [...] Comments Blood Pressure 157/76 09/24/2024 11:24 AM DIRECTOR OF BRAND MARKETING bp stated she been having headach after she fall .denies hitting her head. provider notified. Pulse 81 09/24/2024 11:24 AM DIRECTOR OF BRAND MARKETING Temperature 36.1 C (97 F) 09/24/2024 11:24 AM DIRECTOR OF BRAND MARKETING Respiratory Rate 18 07/06/2024 1:12 PM CDT Oxygen Saturation 99% 09/24/2024 11: 24 AM DIRECTOR OF BRAND MARKETING Inhaled Oxygen Concentration - - Weight 81.2 kg (179 lb) 09/24/2024 11:2 4 AM DIRECTOR OF BRAND MARKETING Height 170.2 cm (5' 7 ) 09/24/2024 11:2 4 AM DIRECTOR OF BRAND MARKETING Body Mass Index 28.04 09/24/2024 11:24 AM DIRECTOR OF BRAND MARKETING Plan of Treatment Upcoming Encounters Date Type Department Care Team (Late st Contact Info) Description 01/04/2025 11:00 AM CDT Appointment [facility] [address] [place] [phone] Daly Collier, MANAGER DRUG SAFETY-[employer] [address] [place] [address] [address] [place] [phone] 01/04/2025 12:30 PM CDT Office Visit [facility] [address] [facility] [place] [phone] Daly Collier, MANAGER DRUG SAFETY[employer] [address] [facility] [address] [place] [phone] Health Maintenance Due Date Last Done Comments BONE DENSITY TESTING 1960 COLOGUARD (AGES 45-75) - COLON CA SCREENING 1958 COLON MONITORING 1958 COLONOSCOPY - COLON CA SCREENING 1958 CT COLONOGRAPHY - COLON CA SCREENING 1958 Colorectal Cancer Screening 1958 FIT - COLON CA SCREENING 1958 FLEX SIG - COLON CA SCREENING 1958 MAMMOGRAM 1960 MEDICARE AWV 12 MONTHS 1958 HEPATITIS C SCREENING 03/07/1976 DTAP/TDAP/TD VACCINES (1 - Tdap) 1977 PNEUMOCOCCAL VACCINE 50+ (1 of 2 - PCV) 1977 ZOSTER VACCINE (1 of 2) 2008 HEPATITIS B VACCINE (1 of 3 - Risk 3-dose series) 2018 Respiratory Syncytial Virus (RSV) Vaccine Pt: or over 60 yrs (1 - Risk 60-74 years 1-dose series) 2018 DIABETES RETINOPATHY SCREENING 12/19/2023 DIABETES-FOOT EXAM WITH MONOFILAMENT 12/19/2023 DIABETES-HGB A1C 12/19/2023 COVID-19 VACCINE (3 - 2023- season) 2024 12/26/2020, 12/05/2020 INFLUENZA VACCINE (#1) 2024 , 08/06/2021, 07/24/2020, Additional history exists DEPRESSION SCREENING 10/20/2024 DIABETES - URINE PROTEIN SCREENING 10/20/2024 DIABETES-SERUM CREATININE 11/28/2024 11/28/2023 HIB VACCINE Aged Out No longer eligi ble based on patient's age to complete this topic HPV VACCINE Aged Out No longer eligi ble based on patient's age to complete this topic MENINGOCOCCAL (Group B) VACCINE Aged Out No longer eligible based on patient's age to complete this topic MENINGOCOCCAL VACCINE Aged Out No jayne natasha eligible based on patient's age to complete this topic Goals Goal Patient Goal Type Associated Problems Recent Progress Patient-Stated? Author Medication Management General No Dorie Turpin, RN Note: Expected end date: Ongoing Interventions: Take all medications as prescribed Let your doctor know right away about any changes in your medications Make sure to request a refill of your medication at least one week prior to your last dose Procedures Procedure Name Priority Date/Time Associated Diagnosis Comments COMP MET PANEL (EXTERNAL RESULT ENTRY) Routine 11/28/2023 2:33 PM DIRECTOR OF BRAND MARKETING from Last 3 Months or Most Recently Relevant to Health Maintenance Results * (ABNORMAL) COMP MET PANEL (EXTERNAL RESULT ENTRY) (11/28/2023 2:33 PM DIRECTOR OF BRAND MARKETING) Glucose (EXTERNAL) 86 mg/dL OTHER LAB Sodium [...] BLOOD SPECIMEN / Unknown 11/28/2023 2:33 PM DIRECTOR OF BRAND MARKETING Historical Provider LAB - CHEMISTRY O RDERABLES OTHER LAB from Last 3 Months or Most Recently Relevant to Health Maintenance Care Teams Accounts Receivable Assistant Relationship Specialty Start Date End Date Dustin Mahmood MD [address] [place] [address] PCP - General Internal Medicine 12/19/23
--- OUTSIDE RECORDS SUMMARY | 2024-12-28 13:22 | XMS_ITS | Clinical Summary ---
Author Organization [facility] Care Team Providers Care Auxiliary Powerplant Operator Name Role Phone Unavailable Primary Care Provider Unavailabl e Social History Tobacco Use Types Packs/Day Years Used Date Smoking Tobacco: Never Assessed Comments Unknown Sex and Gender Information Value Date Recorded Sex Assigned at Not on file Legal Sex Female 8:48 AM BROOM BUILDER Gender Identity Not on file Sexual Orientation Not on file Plan of Treatment Health Maintenance Due Date Last Done Comments DEXA Bone Density 1960 Hepatitis C Virus (HCV) Screening 1960 TdaP Immunization 1958 Colonoscopy 2003 Colorectal Cancer Screening 2003 Cologuard 2008 Immunochemical Fecal Occult Blood 2008 Mammogram 2008 Pneumococcal Immunization (5 0+ years) (1 of 1 - PCV) 2008 Zoster Immunization (1 of 2) 2008 Influenza Immunization (#1) 2024 1002/2020, 08/17/2019 SARS-COV-2 Immunization (2 - season) 2024 08/06/2021 Respiratory Syncytial Virus (RSV) Immunization (Adult) (1 - 1-dose 75+ series) 2033 Hepatitis B Immunization Aged Out No longer eligible based on patient's age to complete this topic Meningococcal Immunization (ACWY) Aged Out No longer eligible b ased on patient's age to complete this topic Rotavirus Immunization Aged Out No lo nger eligible based on patient's age to complete this topic
--- OUTSIDE RECORDS SUMMARY | 2024-12-28 13:22 | XMS_ITS | Data Portability ---
Author Organization [place] - [facility] [employer], Main Office Address [address] [place] [address] Care Team Providers Care Learning And Development Manager Name Role Phone EDGARDO SZYMANSKI Primary Care Provider [phone] Assessment No assessment recorded. Plan of Treatment Reminders Order Date Submit Date Provider Last Modified By Organization Details Last Modified Time Details Appointments None recorded. Lab CMP, serum or plasma [address] (Lab), [address] [place] [address], [address], 3 16:24:36 HbA1c (hemoglobin A1c), blood [address] (Lab), [address] [place] [address], [address], 3 16:24:37 microalbumi n/creatinin e, mass ratio, urine [address] (Lab), [address] [place] [address], [address], 3 16:24:37 C-peptide, serum [address] (Lab), [address] [place] [address], [address], 3 16:24:36 lipid panel, serum [address] (Lab), [address] [place] [address], [address], 3 16:24:36 vitamin B12 + folate, serum or blood [address] (Lab), [address] [place] [address], [place], [address], 3 16:24:37 CBC w/ auto diff [address] (Lab), [address] [place] [address], [place], [address], 3 16:24:36 TSH + free T4, serum [address] (Lab), [address] [place] [address] [address], [place], [address], 3 16:24:37 T3, free, serum or plasma [address] (Lab), [address] [place] [address], [place], [address], 3 16:24:37 thyroid peroxidase (tpo) Ab, serum [address] (Lab), [address] [place] [address], [address], 3 16:24:36 iron + total iron-bindin g capacity (TIBC), serum [address] (Lab), [address] [place] [address], [address], 3 16:24:37 Referral diabetic nutrition education referral 2022 023 [facility], [address], [place], [address], 3 15:10:43 Procedures None recorded. Surgeries None recorded. Imaging None recorded. Medication Orders glimepiride 1 mg tablet 2022 023 [id number], [address], [place], [place], [id number], 19:48:20 Patient TargetsNo targets recorded. Patient InstructionsNo instructions recorded. Reason for Referral Diabetic Nutrition Education Referral for Well controlled type 2 diabetes mellitus Referring Physician: Haley Breaux Endocrinology, Encounter Date: 02/18/2023 Results Created Date Observation Date Name Description Value Unit Range Abnormal Flag Note LastModifiedBy Organization Detail LastModifiedTime Result Notes None recorded. Problems Name Problem SNOMED Code Status Onset Date Resolution Date Notes Provider Name and Address Organization Details Recorded Time Well controlled type 2 diabetes mellitus 957986385 Active 2022 Haley Breaux MD [address] [facility], [place] [address], [place], [address], [employer] 16:23:19 Fatigue 44649461 Active 2022 Haley Breaux MD [address] [facility], [place] [address], [place], [address], [employer] 3 16:23:31 Dyslipidemia 805329454 Active 2022 Haley Breaux MD [address] [facility], [place] [address], [place], [address], [employer] 16:23:55 Problem Notes None recorded. Procedures Surgical History Date Name Laterality Status Provider Name and Address Organization Details Recorded Time Hysterectomy completed Mounika Sorto CMA [facility] [employer] 02/18/2023 16:04:04 delivery completed Mounika Sorto CMA [employer] [employer] 02/18/2023 16:04:12 Imaging Results None recorded. Procedure Notes None recorded. Medical Equipment None Reported. Allergies Allergen ID Allergen Name Allergen Category Reaction Reaction Severity Criticality Documentation Date Start Date Code Code System Note Provider Name and Address Organization Details Recorded Time 93082 Product containin g penicilli n (product) medicatio n Not available Not available Not available 02/18/2023 50006 8001 SNOMED Mounika Sorto CMA [facility], [employer] 3 16:01:17 Medications Name Sig Start Date Stop Date Status Note LastModified by Organization Details LastModified Time metformin 500 mg tablet TAKE 1 TABLET BY MOUTH TWICE DAILY 02/18 completed Not Available Not Available Not Available clindamycin HCl 300 mg capsule TAKE 1 CAPSULE BY MOUTH EVERY 8 HOURS 02/18 completed Not Available Not Available Not Available sulfamethox azole 800 mg-trimetho prim 160 mg tablet TAKE 2 TABLETS BY MOUTH EVERY 12 HOURS 02/18 completed Not Available Not Available Not Available glimepiride 1 mg tablet TAKE 2 TABLETS BY MOUTH TWICE DAILY BEFORE MEALS active Not Available Not Available No t Available alprazolam 0.5 mg tablet TAKE 1 TABLET BY MOUTH TWICE DAILY NEEDED FOR ANXIETY active Not Available Not Available No t Available metformin 1,000 mg tablet TAKE 1 TABLET BY MOUTH TWICE DAILY 02/18 completed Not Available Not Available Not Available glimepiride 4 mg tablet TAKE 1 TABLET BY MOUTH EVERY MORNING WITH BREAKFAST 02/18 completed Not Available Not Available Not Available gabapentin 300 mg capsule TAKE 1 CAPSULE BY MOUTH DAILY active Not Available Not Available No t Available mupirocin 2 % topical ointment APPLY TOPICALLY TO THE AFFECTED AREA TWICE DAILY active Not Available Not Available No t Available Januvia 50 mg tablet TAKE 1 TABLET BY MOUTH DAILY active Not Available Not Available No t Available Vitals Date Recorded Body weight Body mass index (BMI) Body height Body temperature Heart rate Systolic blood pressure Diastolic blood pressure Provider Name and Address Organization Details Last Updated DateTime 3 72350.4 9 g 21.6 kg/m2 175.26 cm 97.6 [degF] 94 /min 124 mm[Hg] 84 mm[Hg] Mounika Sorto CMA [facility] [employer] 16:00:51 Social History Question Answer Notes LastModified by Organizat ion Details LastModified Time Tobacco Smoking Status Never Smoker Mounika Sorto CMA null, [facility] [employer] 02/18/2023 16:03:10 What Is Your Level Of Alcohol Consumption? None [email or web address] Information not available 02/18/2023 Sex: Unknown Functional Status None recorded. Mental Status None recorded. Family History Relationship Description Onset Age of this Age Resolved Age Notes LastModified by Organization Details LastModified Time Father Diabetes mellitus [email or web address] Not available 02/18 16:03:03 Medical History Condition Response BLINDNESS N RHEUMATIC FEVER N MRSA N BACK INJECTIONS N INFECTIOUS DISEASE N HEART ARRHYTHMIA N LUNG DISEASE/DISORDER N ESRD N INSOMNIA N HISTORY OF DRUG ABUSE N RADIATION / CHEMOTHERAPY N COPD N HIGH CHOLESTEROL / HYPERLIPIDEMIA N HYPERTHYROIDISM N EYE PROBLEMS N PVD N BLOOD DISEASES N SURGERY N EDEMA N HYPOTHYROIDISM N SHINGLES N DEPRESSION (INCLUDING POST ) N HAVE YOU BEEN HOSPITALIZED OR SEEN IN E ER IN THE PAST YEAR ? N FAILED BACK SYNDROME N STROKE/TIA N THYROID DISEASE N BENIGN PROSTATIC HYPERPLASIA N POLYCYSTIC OVARIES N OBESITY N GERD/NAUSEA N EXCESSIVE PERSPIRATION N ANEURYSM N OSTEOPOROSIS N Do you have Advance directive? N ARTHRITIS N USE OF BLOOD THINNERS N NO SIGNIFICANT PAST MEDICAL HISTORY N SKIN PROBLEMS N DIABETES, TYPE Y VON WILLIBRAND'S DISEASE N PARATHYROID DISEASE N BLOOD CLOTS N POST LAMINECTOMY SYNDROME N HEPATITIS / LIVER DISEASE N GOUT N ALZHEIMER'S DISEASE N ARTERIAL INSUFFICIENCY N HERPES N RETINOPATHY N HEADACHES/MIGRAINES N SEIZURES/EPILEPSY N GI PROBLEMS N Low Testosterone N DIZZINESS N HEART DISEASE/HEART PROBLEMS N AIDS/HIV N KIDNEY DISEASE N LIVER DISEASE N MALE HYPOGONADISM N NEUROPSYCHOLOGICAL N HYPERTENSION N CANCER: SPECIFY N TOURETTE'S N BLOOD TRANSFUSION N ANEMIA/BLOOD DISORDER N ATRIAL FIBRILLATION N AUTOIMMUNE DISEASE N TUBERCULOSIS N GLAUCOMA N Gynecological HistoryNo gynecological history recorded. Obstetrics History GPAL:G 0 P 0 0 0 0 Past Encounters Encounter ID Performer Location Encounter Start Date Encounter Closed Date Diagnosis/Indication Diagnosis SNOMED-CT Code Diagnosis ICD10 Code Diagnosis Note [id number] Haley Breaux MD [facility] [address] [place] [address] 02/18/2023 15:40:48 02/18/2023 16:34:30 Well controlled type 2 diabetes mellitus 891829975 E11.9 a1c dropped from 11.6% down to 5.6%- patient unable to tolerate metformin due to diarrhea and felt the glimepirid e did cause headaches but likely due to hypoglycem ia. Patient not given a scale or parameters to take glimepirid e safely but she did appreciate how well the glimepirid e did work. Will send for cpeptide to screen insulin stores as patient lost over 50 pounds unintentio yohannes which raises the possibilit y of either underlying thyroid ds or CHAD. Continue januvia as patient is tolerating well. Encouraged patient to test sugars prebreakfa st and predinner and at times before bedtime to maintain log for review at return visit. Recommend she take her glimepirid e on glucose scale according to glucose checks. If sugars are running under 110 mg/dL hold glimepirid e, if 111-140 mg/dL take half tablet, if 141-180 mg/dL take full tablet and if over 180 mg/dL take 2 tablets for the full 2 mg of glimepirid e up to twice daily before meals. If sugars are consistent ly over 180 mg/dL she was advised to contact clinic and notify me so we can modify changes. Patient advised to bring glucose meter at return visit for review. Refer to diabetic education to help further with carb counting and nutritiona l guidance. Fatigue 44050988 R53.83 Will send for thyroid antibodies to screen for autoimmune thyroid disease in addition to CBC, CMP, ferritin and B12/folate to screen for other potential secondary causes of fatigue. Dyslipidemia 195565571 E 78.5 Send for lipid panel to assess need to modify statin therapy. Spent up to 45 minutes preparing to see the patient (eg, review of tests), obtaining and/or reviewing separately obtained history, performing a medically appropriat e examinatio n and evaluation , counseling and educating the patient, ordering medication s, tests, along with documentin g clinical informatio n in the electronic health record, independen tly interpreti ng results and communicat ing results to the patient. RTC in 3-4 months. Patient was provided a handwritte n lab order which contains our fax number. If she chooses to go outside of the [facility] system to obtain labwork she was advised to provide our fax number and my informatio n to the lab she will be obtaining labwork from in order to have her labs properly forwarded over for me to review so there is no loss of follow up due to use of outside network. She was also advised to contact our clinic informing us that she has completed her labwork so we are aware we will need to reach out to the appropriat e laboratory to request her results be forwarded to us so I might have the ability to review and make further medical decision making in her case. She voiced understand ing. Thank you for this consultati on. Health Concerns Section Related Observation LastModified by Organization [employer] [facility] LastModified Time None Recorded Concern Status LastModified by Organization Details LastModified Time None Recorded Advance Directives Directive None Recorded Payers Encounter Date Sequence Insurance Name Policy Number Policy Marques Covered Member ID Marques Member ID Guarantor Name 02/18/2023 1 [facility]: (PPO) [id number] Georgie Epps [id number] Georgie Epps Notes Date Note Type Note Provider Name and Address Organization Details Recorded Time 02/18/2023 text/html 62 yo female referred to our clinic by courtesy of Dr. Szymanski for evaluation of type 2 DM (A1C of 5.6% down from 11.6%) and fatigue. She was originally diagnosed in 2014. This was found when she had ovarian torsion-sugars were high and surgery was delayed for several days while getting her sugars controlled. She was on life support for several weeks and on insulin during that stay- on insulin for 2 weeks through rehab- on insulin for 2.5 months at most. She went on januvia and had no trouble on this- her sugars dropped so low she was taken off januvia. Off medications for 6-7 years and now having more issues. She broke her toe this past September and ended up with high sugars -she was then was restarted on glimepiride and this caused severe headaches. Then placed on metformin and this caused diarrhea. She was then able to get on januvia 50 mg daily and has been on this for close to 3 weeks now. Her sugars are higher with the januvia monotherapy. sugars runnin-172 mg/dL fastingover 150 mg/dL predinner Meal regimen: Complications:No CAD or strokelast eye exam: no retinopathy, no edema or swellinghas right foot boot- had four ulcers total - two healed and the other two are healing slowly (seen vascular and good pulses and flow to feet) Haley Breaux MD [address] [facility], [facility] [address], [place], [address], [place] [facility] [employer] 02/18/2023 19:49:25 OBGyn Episode No OBEpisode recorded.
--- OUTSIDE RECORDS SUMMARY | 2024-12-28 13:22 | XMS_ITS | Clinical Summary ---
Author Organization [facility] Office Center Address [address] [place] [address] Care Team Providers Care Scroll Machine Operator Name Role Phone Dustin Mahmood MD Primary [...] SARS-CoV-2 Monovalent Vaccination (12+ Yrs) PURPLE 12/26/2020,12/05/2020 Surgical History Surgery Date Site/Laterality Comments OVARIAN CYST SURGERY 10/20/2014 - 10/19/2015 N/A Social History Tobacco Use Types Packs/Day Years Used Date Smoking Tobacco: Former Cigarettes Tobacco Cessation:Counseling Given: No Personal Safety Answer Date Recorded Getting School Help Needed Not on file 12/20 Comments Unknown Sex and Gender Information Value Date Recorded Sex Assigned at Not on file Legal Sex Female 8:49 AM CDT Gender Identity Not on file Sexual Orientation Not on file Obstetrics History Last Filed Vital Signs Vital Sign Reading [...] 02/10/2023 1:42 PM CDT Plan of Treatment Health Maintenance Due Date Last Done Comments Breast Cancer Screening-Mammogram 1958 Colon Cancer Screening-Colonoscopy 1958 Depression Screening 1958 Fall Risk Assessment 1958 Hemoglobin A1C 1958 Hepatitis C Screening 1958 Osteoporosis Screening-Bone Density Scan 1958 Dilated Eye Exam 1958 Foot Exam 1958 DTaP/Tdap/Td Vaccine (1 - Tdap) 1969 Hepatitis B Screening 1976 Pneumococcal vaccine 65+ (1 of 2 - PCV) 1977 Zoster Vaccine (1 of 2) 2008 Well Visit 65+ 2023 Covid-19 Vaccine (5 - 2023-2 5 season) 2024 09/26/2022, 08/06/2021, 12/26/2020, Additional history exists Influenza Vaccine (#1) 2024 2, 08/06/2021, 07/24/2020, Additional history exists Albumin Creatinine Ratio, Urine 05/12/2025 Lipid Panel 05/12/2025 05/12/2024 eGFR 05/12/2025 05/12/2024 Procedures Procedure Name Priority Date/Time Associated Diagnosis [...] Ur <18 1 - 29 mg/g [facility] Urine 05/12/2024 10:4 1 AM CDT 05/12/2024 11:21 AM CDT us Willy So MD LAB URINE ORDERABLES Final R esult [facility] [address] [facility] [place] [address] * (ABNORMAL) Lipid panel (05/12/2024 10:41 AM [...] on 2018. Triglycerides 57 <=149 mg/dL [facility] Comment: Interpretive Data Ages < or = [...] Pediatrics 2011;128:S213 2. NCEP Expert Panel. Circulation 2003;110:227 Current Interpretive Data was last revised on 2018. Chol/HDL ratio 3 [facility] Blood 05/12/2024 10:4 1 AM CDT 05/12/2024 11:19 AM CDT us Willy So MD LAB BLOOD ORDERABLES Final R esult [facility] [address] Department [place] [address] * eGFR (05/12/2024 10:40 AM CDT) eGFR [...] ORDERABLES Final Re sult Performing Organization Address City/State/ZIP Co co Phone Number [facility] [phone] Department [place] [address] from Last 3 Months or Most Recently Relevant to Health Maintenance Insurance [email or web address] [facility] Care Teams Scroll Machine Operator Relationship Specialty Start Date End Date Dustin Mahmood MD [address] [place] [address] PCP - General Emergency Medicine 01/15/23
== END 2024-12-28 11:43 | disposition home or self-care (01) ==
PROVIDERS: PCP Emergency Medicine
DX: K74.60 Unspecified cirrhosis of liver (principal)
CPT/HCPCS: 36415; 80053; 85025; 85055

== ENCOUNTER 2025-02-09 09:52 | Outpatient (CLI) | payer BC, MEDICARE, SELFPAY ==
[2025-02-09 10:36] LABS: Cholesterol 177 mg/dL (0-200); HDL Direct 65 mg/dL; Triglycerides 83 mg/dL (<150)
[2025-02-09 10:40] LABS: Alanine Aminotransferase 35 U/L (6-35); Albumin Level 4.4 g/dL (3.5-5.1); Alkaline Phosphatase 94 U/L (38-126); Anion Gap 6 mmol/L (4-12); Aspartate Amino Transferase 42 U/L (14-36); Bilirubin,Total 0.9 mg/dL (0.2-1.3); Blood Urea Nitrogen 11 mg/dL (7-17); Calcium 9.1 mg/dL (8.4-10.2); Carbon Dioxide 31 mmol/L (22-30); Chloride 101 mmol/L (98-107); Estimated Glomerular Filt Rate > 60; Glucose 130 mg/dL (65-110); Potassium 4.7 mmol/L (3.4-5.0); Sodium 138 mmol/L (137-145)
[2025-02-09 10:47] LABS: LDL Cholesterol Direct 74 mg/dL
[2025-02-09 10:56] LABS: Vitamin D 25 Hydroxy 50.2 ng/mL
[2025-02-09 11:07] LABS: Creatinine Urine 27.4 mg/dL
--- OUTSIDE RECORDS SUMMARY | 2025-02-09 11:07 | XMS_ITS | Referral Summary ---
Author Organization [facility] at the [facility] Office Center Address [address] [place] [address] Care Team Providers Care Auto Mechanic Apprentice Name Role Phone Dustin Mahmood MD Primary [...] URINE ORDERABLES Final R esult [facility] [address] [facility] [place] [address] * (ABNORMAL) Lipid panel (05/12/2024 10:41 AM [...] last revised on 2018. Chol/HDL ratio 3 [facility] Blood 05/12/2024 10:4 1 AM CDT 05/12/2024 11:19 AM CDT us Willy So MD LAB BLOOD ORDERABLES Final R esult Performing Organization Address City/[facility]/ZIP Co de Phone Number [facility] [phone] [place] [address] * eGFR (05/12/2024 10:40 AM [...] ORDERABLES Final Re sult Performing Organization Address City/[facility]/ZIP Co de Phone Number [facility] [address] [place] [address] from Last 3 Months or Most Recently Relevant to Health Maintenance Insurance [place] [place] Care Teams Auto Mechanic Apprentice Relationship Specialty Start Date End Date Dustin Mahmood MD [address] [place] [address] PCP - General Emergency Medicine 01/15/23
--- OUTSIDE RECORDS SUMMARY | 2025-02-09 11:08 | XMS_ITS | Clinical Summary ---
Author Organization [facility] [employer] Address [address] [place] [address] Care Team Providers Care Print Binding Worker Name Role Phone Dustin Mahmood MD Primary Care Provider [phone] Source Comments [facility],non-owned Affiliates and Associated Physician Practices is amultiple site organization consisting of ambulatory clinics and hospital sitesin [place], [place], [place] and [place]. This disclosure is being madepursuant to the Care Everywhere program and may not contain all information available regarding this patient. Last updated 18.[facility] [employer] Allergies Active Allergy Reactions Criticality Noted Date Comments Aspirin Itching 07/06/2024 Penicillins Rash Medium 01/20/2023 Medications * Be aware that medications may not be up to date on this document. Alwaysverify current medications with the patient. ALPRAZolam (Xanax) 0.5 MG tablet Take 1 (one) tablet by mouth 2 times daily as needed anxiety 4 Active atorvastatin (Lipitor) 10 MG tablet Take 1 (one) tablet by mouth once daily 4 Active gabapentin (Neurontin) 300 MG capsule Take 1 (one) capsule by mouth once daily 4 Active glimepiride (Amaryl) 1 MG tablet Take 2 (two) tablets by mouth 2 times daily, before breakfast and supper 4 Active Baqsimi One Pack 3 MG/DOSE POWD USE 1 SPRAY IN EACH NOSTRIL ONCE 3 Active Glucose 4-6 GM-MG CHEW AND SWALLOW 4 TABLETS BY MOUTH EVERY 15 MINUTES NEEDED FOR HYPOGLYCEMIA UNTIL SYMPTOMS OF LOW BLOOD SUGAR ARE CONTROLLED 3 Active Januvia 50 MG tablet Take 1 (one) tablet by mouth once daily 4 Active Ozempic, 0.25 or 0.5 MG/DOSE, 2 MG/3ML SOPN INJECT 0.25 MG UNDER THE SKIN ONCE WEEKLY 5 Active Active Problems Problem Noted Date Diagnosed [...] Encounters Date Type Department Care Team Description 01/18/2025 12:43 PM CDT - 01/18/2025 11:59 PM CDT Hospital Encounter [facility] Health Imaging Services - [place] Scan [address] [place] [address] Emily Quintanilla MD Discharge Disposition: Home or Self Care 01/18/2025 Travel 01/13/2025 10:30 AM CDT Office Visit [facility] - General Surgery [address] [facility] [address] [place] [id number] Emily Quintanilla MD Ventral incisional hernia without obstruction or gangrene (Primary Dx) 01/13/2025 Travel 01/06/2025 Travel 01/04/2025 12:30 PM CDT Office Visit [facility] [place] [address] Daly Collier, RUG SHAMPOOER-LUBRICATION SUPERVISOR Cirrhosis of liver without ascites, unspecified hepatic cirrhosis type (Primary Dx) 01/04/2025 10:42 AM CDT - 01/04/2025 11:59 PM CDT Hospital Encounter [facility] [address] [place] [address] Daly Collier, RUG SHAMPOOER-EDUIN Discharge Disposition: Home or Self Care 01/04/2025 Travel 12/20/2024 Orders Only [facility] - [facility] [place] [address] Daly Collier, RUG SHAMPOOER-EDUIN Cirrhosis of liver without ascites, unspecified hepatic cirrhosis type from Last 3 Months Family History Medical History Relation Name Comments Diabetes - Type 2 Father Cancer - Breast Mother Relation Name Status Comments Father Mother Social History Tobacco Use Types Packs/Day Years Used Date Smoking Tobacco: Never Assessed Cigarettes Quit: 12/18/2005 Smokeless Tobacco: Never Alcohol Use Standard Drinks/Week Comments Not Asked 0 (1 standard drink = 0.6 oz pur e alcohol) no drinks for a year now Comments Unknown Sex and Gender Information Value Date Recorded Sex Assigned at Not on file Legal Sex 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 Gender Identity Not on file Sexual Orientation Not on file Last Filed Vital Signs Vital Sign Reading Time Taken Comments Blood Pressure 138/82 01/13/2025 10:20 AM CDT Pulse 78 01/13/2025 10:20 AM CDT Temperature 34.9 C (94.8 F) 01/13/2025 10:20 AM CDT Respiratory Rate 18 01/13/2025 10:20 AM CDT Oxygen Saturation 92% 01/13/2025 10:20 AM CDT Inhaled Oxygen Concentration - - Weight 83.9 kg (185 lb) 01/13/2025 10:20 AM CDT Height 177.8 cm (5' 10 ) 01/13/2025 10:20 AM CDT Body Mass Index 26.54 01/13/2025 10:20 AM CDT Plan of Treatment Upcoming Encounters Date Type Department Care Team (Late st Contact Info) Description 04/12/2025 11:00 AM CDT Appointment [facility] [address] [place] [phone] Daly Collier, RUG SHAMPOOER-LUBRICATION SUPERVISOR [address] [facility] [address] [place] [address] 04/12/2025 12:00 PM CDT Office Visit [facility] - GI [address] [facility] [place] [address] Daly Collier, RUG SHAMPOOER-LUBRICATION SUPERVISOR [address] [facility] [address] [place] [address] Health Maintenance Due Date Last Done Comments [...] (3 - 2023- season) 2024 12/26/2020, 12/05/2020 DEPRESSION SCREENING 10/20/2024 DIABETES - URINE PROTEIN SCREENING 10/20/2024 INFLUENZA VACCINE (Season Ended) 2025 08/13/2022, 08/06/2021, 07/24/2020, Additional history exists DIABETES-SERUM CREATININE 01/18/2026 01/18/2025, 06/2024 HIB VACCINE Aged Out No longer eligi ble based on patient's age to complete this topic HPV VACCINE Aged Out No longer eligi ble based on patient's age to complete this topic MENINGOCOCCAL (Group B) VACCINE SHARED DECISION-MAKING Aged Out No longer eligible based on patient's age to complete this topic MENINGOCOCCAL GROUPS A/C/Y/W VACCINE Aged Out No longer eligible based on patient's age to complete this topic Goals Goal Patient Goal Type Associated Problems Recent Progress Patient-Stated? Author Medication Management General On track( 025 12:52 PM CDT) Dorie Luong RN Note: Expected end date: Ongoing Interventions: Take all medications as prescribed Let your doctor know right away about any changes in your medications Make sure to request a refill of your medication at least one week prior to your last dose Procedures Procedure Name Priority Date/Time Associated Diagnosis Comments CT ABDOMEN PELVIS W CONTRAST Routine 01/18/2025 1:30 PM CDT Ventral incisional hernia without obstruction or gangrene CREATININE - POCT INTERFACED Routine 01/18/2025 12:54 PM CDT US ABDOMEN LIMITED Routine 01/04/2025 11 :17 AM CDT Cirrhosis of liver without ascites, unspecified hepatic cirrhosis type from Last 3 Months Results * CT Abdomen Pelvis W Contrast (01/18/2025 1:30 PM CDT) Anatomical Region Laterality Modality Abdomen, Pelvis Computed Tomogra phy 01/18/2025 2:52 PM CDT Impressions 01/18/2025 2:54 PM CDT IMPRESSION: 1. Diastases recti with right lateral herniation of fat and small portion of transverse colon. 2. Cirrhotic appearing liver. Correlate clinically. > Interpreting Provider: Justin Yoder MD on 01/18/2025 2:54 PM Narrative 01/18/2025 2:[address] Abdomen With Contrast CT Pelvis With Contrast Clinical Indication: Incisional hernia. Technique: Axial CT images from the lung bases through the pubic symphysis were obtained following intravenous administration of Isovue-370, 80 cc. One or more of the following CT dose reduction techniques were utilized: *Automated exposure control (AEC) *Adjustment of mA and/or kV according to patient size -Use of iterative reconstruction technique -CT scan done according to ALARA or ALARA/IMAGE GENTLY Findings: Nodular hepatic contour. Correlate for cirrhosis. Borderline enlarged spleen 12.7 cm long span. Biliary ductal dilatation noted. The extrahepatic duct measures 9 mm. Cholelithiasis. No gallbladder wall thickening. Pancreas within normal limits. No adrenal nodule or mass. Kidneys enhance normally and there is no hydronephrosis. No bowel wall thickening or inflammation seen. Sigmoid diverticulosis without diverticulitis. No evidence of appendicitis. Diastases recti with right lateral hernia containing fat small portion of the transverse colon. Uterus absent. No adnexal mass. Urinary bladder unremarkable. No acute osseous abnormality. Procedure Note Justin Yoder MD - 01/18/[address] With Contrast CT Pelvis With Contrast Clinical Indication: Incisional hernia. Technique: Axial CT images from the lung bases through the pubicsymphysis were obtained following intravenous administration of Isovue-370, 80 cc. One or more of the following CT dose reduction techniques were utilized: *Automated exposure control (AEC) *Adjustment of mA and/or kV according to patient size -Use of iterative reconstruction technique -CT scan done according to ALARA or ALARA/IMAGE GENTLY Findings: Nodular hepatic contour. Correlate for cirrhosis. Borderline enlarged spleen 12.7 cm long span. Biliary ductal dilatation noted. Theextrahepatic duct measures 9 mm. Cholelithiasis. No gallbladder wall thickening. Pancreas within normal limits. No adrenal nodule or mass. Kidneysenhance normally and there is no hydronephrosis. No bowel wall thickening or inflammation seen. Sigmoid diverticulosis without diverticulitis. No evidence of appendicitis. Diastases recti with right lateral hernia containing fat small portionof the transverse colon. Uterus absent. No adnexal mass. Urinary bladder unremarkable. No acute osseous abnormality. IMPRESSION: 1. Diastases recti with right lateral herniation of fat and smallportion of transverse colon. 2. Cirrhotic appearing liver. Correlate clinically. > Interpreting Provider: Justin Yoder MD on 01/18/2025 2:54 PM us Emily Quintanilla MD CT ORDERABLES Final Result * (ABNORMAL) CREATININE - POCT INTERFACED (01/18/2025 12:54 PM CDT) Creatinine POCT 0.69(L) 0.70 - 1.20 mg/dL 01/18/2025 1:28 PM CDT [facility] eGFR >90 >=90 mL/min/1.7 3 m2 01/18/2025 1:28 PM CDT [facility] Blood BLOOD SPECIMEN / Unknown 01/18/2025 12:54 PM CDT 01/18/2025 1:28 PM CDT us Emily Quintanilla MD LAB - POINT OF CARE ORDERABLES F inal Result [facility] [address] [place] [address] * US Abdomen Limited (01/04/2025 11:17 AM CDT) Anatomical Region Laterality Modality Abdomen Ultrasound 01/04/2025 11:2 8 AM CDT Impressions 01/04/2025 12:28 PM CDT Impression: Liver Visualization Score B: Moderate limitations. US-1 Negative. Repeat surveillance US in 6 months. Mildly dilated common bile duct. Cirrhotic morphology of the liver with sequela of portal hypertension. REFERENCE: US LI-RADS categories: US Category: US 1 - Negative: No evidence of hepatocellular carcinoma (HCC). US 2 - Subthreshold: Observation detected that may warrant short-interval US surveillance. Observation<10 mm in diameter, not definitely benign. US 3 - Positive: Observation detected that may warrant multi-phase contrast-enhanced imaging. Observation >/= 10 mm in diameter or new thrombus in vein. Visualization Score: A. No or minimal limitations: Limitations, if any, are unlikely to meaningfully affect sensitivity. B. Moderate limitations: Limitations may obscure small masses. C. Severe limitations: Limitations significantly lower sensitivity for focal liver lesions. Report dictated by Navi Butterfield MD (vice president of procurement) I, Lee Marcos MD have personally reviewed and interpreted this examination/study. > Interpreting Provider: Lee Marcos MD on 01/04/2025 12:28 PM Narrative 01/04/2025 12:28 PM CDT PROCEDURE: US ABDOMEN LIMITED, DATE/TIME OF EXAM: 01/04/2025 11:17 AM, LOCATION [facility] INDICATION: K74.60: Cirrhosis of liver without ascites, unspecified hepatic cirrhosis type (HCC) ADDITIONAL CLINICAL INFORMATION: Ordering Provider Reason For Exam: COMPARISON: None. Findings Liver Visualization Score: Moderate limitations in liver visualization Liver Morphology: The liver has a coarse echotexture and nodular surface. Liver Observations: None. Main Portal Vein: Color Doppler evaluation demonstrates patency of the main portal vein. Hepatic Veins: Color Doppler evaluation demonstrates patency of the hepatic veins. Bile Ducts: The common bile duct is dilated, measuring 8 mm. Gallbladder: No gallstones or pericholecystic fluid is seen.. Sonographic Tom's sign is negative. Ascites: No ascites is present. Spleen: The spleen measures 14.8 cm in length. Pancreas: The visible pancreas is normal in echogenicity. Right Kidney: The right kidney measures 11.4 cm in length. Limited views of the right kidney reveal no evidence of nephrolithiasis or hydronephrosis. No discrete mass identified. Procedure Note Lee Marcos MD - 01/04/2025 PROCEDURE: US ABDOMEN LIMITED, DATE/TIME OF EXAM: 01/04/2025 11:17 AM, LOCATION [facility] INDICATION: K74.60: Cirrhosis of liver without ascites, unspecified hepaticcirrhosis type (HCC) ADDITIONAL CLINICAL INFORMATION: Ordering Provider Reason For Exam: COMPARISON: None. Findings Liver Visualization Score: Moderate limitations in liver visualization Liver Morphology: The liver has a coarse echotexture and nodular surface. Liver Observations: None. Main Portal Vein: Color Doppler evaluation demonstrates patency of the main portal vein. Hepatic Veins: Color Doppler evaluation demonstrates patency of the hepatic veins. Bile Ducts: The common bile duct is dilated, measuring 8 mm. Gallbladder: No gallstones or pericholecystic fluid is seen.. Sonographic Tom'ssign is negative. Ascites: No ascites is present. Spleen: The spleen measures 14.8 cm in length. Pancreas: The visible pancreas is normal in echogenicity. Right Kidney: The right kidney measures 11.4 cm in length. Limited views of the right kidney reveal no evidence of nephrolithiasis or hydronephrosis. No discrete mass identified. Impression: Liver Visualization Score B: Moderate limitations. US-1 Negative. Repeat surveillance US in 6 months. Mildly dilated common bile duct. Cirrhotic morphology of the liver with sequela of portal hypertension. REFERENCE: US LI-RADS categories: US Category: US 1 - Negative: No evidence of hepatocellular carcinoma (HCC). US 2 - Subthreshold: Observation detected that may warrant short-interval US surveillance. Observation<10 mm in diameter, not definitely benign. US 3 - Positive: Observation detected that may warrant multi-phase contrast-enhanced imaging. Observation >/= 10 mm in diameter or new thrombus in vein. Visualization Score: A. No or minimal limitations: Limitations, if any, are unlikely to meaningfully affect sensitivity. B. Moderate limitations: Limitations may obscure small masses. C. Severe limitations: Limitations significantly lower sensitivityfor focal liver lesions. Report dictated by Navi Butterfield MD (vice president of procurement) I, Lee Marcos MD have personally reviewed and interpreted this examination/study. > Interpreting Provider: Lee Marcos MD on 512:28 PM us Daly Collier RUG SHAMPOOER-LUBRICATION SUPERVISOR US ORDERABLES Maia l Result from Last 3 Months Insurance [employer] MEDICARE Care Teams Print Binding Worker Relationship Specialty Start Date End Date Dustin Mahmood MD [address] [place] [id number] PCP - General Internal Medicine 12/19/23
--- OUTSIDE RECORDS SUMMARY | 2025-02-09 11:08 | XMS_ITS | Clinical Summary ---
Author Organization [facility] the [facility] Address [address] [place] [address] Care Team Providers Care Structural Engineering Technician Name Role Phone Dustin Mahmood MD [...] LAB URINE ORDERABLES Final R esult [facility] [address] [address] Department [place] [address] * (ABNORMAL) Lipid panel (05/12/2024 10:41 AM [...] BLOOD ORDERABLES Final R esult [facility] CRESPO [address] [address] Department [place] [address] * eGFR (05/12/2024 10:40 AM CDT) eGFR [...] Re sult Performing Organization Address City/State/ZIP Co dc Phone Number [facility] [address] [address] Department [place] [address] from Last 3 Months or Most Recently Relevant to Health Maintenance Insurance Ping Communication [facility] Care Teams Structural Engineering Technician Relationship Specialty Start Date End Date Dustin Mahmood MD [address] [place] [address] PCP - General Emergency Medicine 01/15/23
--- OUTSIDE RECORDS SUMMARY | 2025-02-09 11:08 | XMS_ITS | Data Portability ---
Author Organization [place] [facility] [employer], Main Office Address [address] [place] [address] Care Team Providers Care Duplicate Maker Name Role Phone EDGARDO SZYMANSKI Primary Care Provider Assessment No assessment recorded. Plan of Treatment Reminders Order Date Submit Date Provider Last Modified By Organization Details Last Modified Time Details Appointments None recorded. Lab CMP, serum or plasma [address] (Lab), [address] [place] [address], [address], 3 16:24:36 HbA1c (hemoglobin A1c), blood [address] (Lab), [address] [place] [address], [address], 3 16:24:37 microalbumi n/creatinin e, mass ratio, urine [address] (Lab), [address] [place] [address], [address], 3 16:24:37 C-peptide, serum [address] (Lab), [address] [place] [address], [address], 3 16:24:36 lipid panel, serum [address] (Lab), [address] [place] [address], [address], 3 16:24:36 vitamin B12 + folate, serum or blood [address] (Lab), [address] [place] [address], [place], [address], 3 16:24:37 CBC w/ auto diff [address] (Lab), [address] [place] [address], [place], [address], 3 16:24:36 TSH + free T4, serum [address] (Lab), [address] [place] [address] [address], [place], [address], 3 16:24:37 T3, free, serum or plasma [address] (Lab), [address] [place] [address], [place], [address], 3 16:24:37 thyroid peroxidase (tpo) Ab, serum [address] (Lab), [address] [place] [address], [address], 3 16:24:36 iron + total iron-bindin g capacity (TIBC), serum [address] (Lab), [address] [place] [address], [address], 3 16:24:37 Referral diabetic nutrition education referral 2022 023 [facility], [address], [place], [address], 3 15:10:43 Procedures None recorded. Surgeries None recorded. Imaging None recorded. Medication Orders glimepiride 1 mg tablet 2022 023 [id number], [address], [place], [place], [id number], 19:48:20 Patient TargetsNo targets recorded. Patient InstructionsNo [...] Time Well controlled type 2 diabetes mellitus 906289193 Active 2022 Haley Breaux MD [address] [facility], [place] [address], [place], [address], [employer] 16:23:19 Fatigue 81810797 Active 2022 Haley Breaux MD [address] [facility], [place] [address], [place], [address], [employer] 3 16:23:31 Dyslipidemia 786593640 Active 2022 Haley Breaux MD [address] [facility], [place] [address], [place], [address], [employer] 16:23:55 Problem Notes None recorded. Procedures Surgical History Date Name Laterality Status Provider Name and Address Organization Details Recorded Time Hysterectomy completed Mounika Sorto CMA [employer] 02/18/2023 16:04:04 delivery completed Mounika Sorto CMA [employer] 02/18/2023 16:04:12 Imaging Results None recorded. Procedure Notes None recorded. Medical Equipment None Reported. Allergies Allergen ID Allergen Name Allergen Category Reaction Reaction Severity Criticality Documentation Date Start Date Code Code System Note Provider Name and Address Organization Details Recorded Time 91474 Product containin g penicilli n (product) medicatio n Not available Not available Not available 02/18/2023 56309 8001 SNOMED Mounika Sorto CMA [facility], [employer] 3 16:01:17 Medications Name Sig Start Date [...] Address Organization Details Last Updated DateTime 3 55674.4 9 g 21.6 kg/m2 175.26 cm 97.6 [degF] 94 /min 124 mm[Hg] 84 mm[Hg] Mounika Sorto CMA [facility] [employer] 16:00:51 Social History Question Answer Notes LastModified by Organizat ion Details LastModified Time Tobacco Smoking Status Never Smoker Mounika Sorto CMA null, [facility] [employer] 02/18/2023 16:03:10 What Is Your Level Of Alcohol Consumption? None [email or web address] Information not available 02/18/2023 Sex: Unknown Functional Status None recorded. Mental Status None recorded. Family History Relationship Description Onset Age of this Age Resolved Age Notes LastModified by Organization Details LastModified Time Father Diabetes mellitus [email or web address] Not available 02/18 16:03:03 Medical History Condition Response BLINDNESS N RHEUMATIC FEVER N MRSA N BACK INJECTIONS N INFECTIOUS DISEASE N LUNG DISEASE/DISORDER N HEART ARRHYTHMIA N INSOMNIA N HISTORY OF DRUG ABUSE N ESRD N RADIATION / CHEMOTHERAPY N COPD N [...] DISEASE N GOUT N ALZHEIMER'S DISEASE N HERPES N ARTERIAL INSUFFICIENCY N RETINOPATHY N SEIZURES/EPILEPSY N HEADACHES/MIGRAINES N GI PROBLEMS N Low Testosterone N DIZZINESS N KIDNEY DISEASE N HEART DISEASE/HEART PROBLEMS N AIDS/HIV N LIVER DISEASE N MALE HYPOGONADISM N [...] SNOMED-CT Code Diagnosis ICD10 Code Diagnosis Note [id number] Haley Breaux MD [facility] [address] [place] [address] 02/18/2023 15:40:48 02/18/2023 16:34:30 Well controlled type 2 diabetes mellitus [id number] E11.9 a1c dropped from 11.6% down to [...] carb counting and nutritiona l guidance. Fatigue 20987028 R53.83 Will send for thyroid antibodies to screen for autoimmune thyroid disease in addition to CBC, CMP, ferritin and B12/folate to screen for other potential secondary causes of fatigue. Dyslipidemia 447791795 E 78.5 Send for lipid panel to [...] she chooses to go outside of the [facility] to obtain labwork she was [...] Marques Member ID Guarantor Name 02/18/2023 1 [facility]: (PPO) [id number] Georgie Epps [id number] Georgie Epps Notes Date Note Type [...] flow to feet) Haley Breaux MD [address] [facility], [facility] [address], [place], [address], [place] [facility] [employer] 02/18/2023 19:49:25 OBGyn Episode No OBEpisode recorded.
--- OUTSIDE RECORDS SUMMARY | 2025-02-09 11:08 | XMS_ITS | Clinical Summary ---
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
[2025-02-09 11:37] LABS: Hemoglobin A1C 6.1 % (<5.7)
[2025-02-09 11:58] LABS: MALB Creatinine Ratio < 21.9 mg/g (0-30); Microalbumin Urine Random < 6.0 mg/L (0-16.7)
== END 2025-02-09 09:53 | disposition home or self-care (01) ==
LOC: ANHLAB 09:54
PROVIDERS: PCP Emergency Medicine; Visit Provider Internal Medicine
DX: K74.60 Unspecified cirrhosis of liver (principal); R74.01 Elevation of levels of liver transaminase levels; E78.5 Hyperlipidemia, unspecified; E55.9 Vitamin D deficiency, unspecified; E11.9 Type 2 diabetes mellitus without complications; I10 Essential (primary) hypertension
CPT/HCPCS: 36415; 80053; 80061; 82043; 82306; 83036

== ENCOUNTER 2025-04-07 10:06 | Outpatient (CLI) | payer MEDICARE, OTHER, SELFPAY ==
--- OUTSIDE RECORDS SUMMARY | 2025-04-07 10:53 | XMS_ITS | Data Portability ---
Author Organization [place] - [facility] [employer], Main Office Address [address] [place] [address] Care Team Providers Care Armature Rewinder Name Role Phone EDGARDO SZYMANSKI Primary Care Provider Assessment No assessment recorded. Plan of Treatment Reminders Order Date Submit Date Provider Last Modified By Organization Details Last Modified Time Details Appointments None recorded. Lab CMP, serum or plasma [address] (Lab), [address] [place] [address], [address], 3 16:24:36 HbA1c (hemoglobin A1c), blood [address] (Lab), [address] [place] [address], [address], 3 16:24:37 microalbumi n/creatinin e, mass ratio, urine [address] (Lab), [address] [place] [address], [address], 3 16:24:37 C-peptide, serum [address] (Lab), [address] [place] [address], [address], 3 16:24:36 lipid panel, serum [address] (Lab), [address] [place] [address], [address], 3 16:24:36 vitamin B12 + folate, serum or blood [address] (Lab), [address] [place] [address], [place], [address], 3 16:24:37 CBC w/ auto diff [address] (Lab), [address] [place] [address], [place], [address], 3 16:24:36 TSH + free T4, serum [address] (Lab), [address] [place] [address] 162, [place], [address], 3 16:24:37 T3, free, serum or plasma [address] (Lab), [address] [place] [address], [place], [address], 3 16:24:37 thyroid peroxidase (tpo) Ab, serum [address] (Lab), [address] [place] [address], [address], 3 16:24:36 iron + total iron-bindin g capacity (TIBC), serum [address] (Lab), [address] [place] [address], [address], 3 16:24:37 Referral diabetic nutrition education referral 2022 023 [facility] [employer], [address], [place], [address], 3 15:10:43 Procedures None recorded. Surgeries None recorded. Imaging None recorded. Medication Orders glimepiride 1 mg tablet 2022 023 [id number], [address], [place], [place], [id number], 19:48:20 Patient TargetsNo targets recorded. Patient InstructionsNo [...] Time Well controlled type 2 diabetes mellitus 279458888 Active 2022 Haley Breaux MD [address] [facility], [address] [address], [place], [address], [employer] 16:23:19 Fatigue 38745617 Active 2022 Haley Breaux MD [address] [facility], [address] [address], [place], [address], [employer] 3 16:23:31 Dyslipidemia 535243170 Active 2022 Haley Breaux MD [address] [facility], [address] [address], [place], [address], [employer] 16:23:55 Problem Notes None recorded. Procedures Surgical History Date Name Laterality Status Provider Name and Address Organization Details Recorded Time Hysterectomy completed Mounika Sorto CMA [email or web address] 02/18/2023 16:04:04 delivery completed Mounika Sorto CMA [email or web address] 02/18/2023 16:04:12 Imaging Results None recorded. Procedure Notes None recorded. Medical Equipment None Reported. Allergies Allergen ID Allergen Name Allergen Category Reaction Reaction Severity Criticality Documentation Date Start Date Code Code System Note Provider Name and Address Organization Details Recorded Time 62191 Product containin g penicilli n (product) medicatio n Not available Not available Not available 02/18/2023 45689 8001 SNOMED Mounika Sorto CMA [facility], [facility] 3 16:01:17 Medications Name Sig Start Date [...] Address Organization Details Last Updated DateTime 3 09662.4 9 g 21.6 kg/m2 175.26 cm 97.6 [degF] 94 /min 124 mm[Hg] 84 mm[Hg] Mounika Sorto CMA [place] [facility] 16:00:51 Social History None recorded. Functional Status Question Answer Note LastModified by Organization D etails LastModified Time What is your level of alcohol consumption? None [email or web address] Information not available 02/18/2023 Mental Status None recorded. Family History Relationship Description Onset Age of this Age Resolved Age Notes LastModified by Organization Details LastModified Time Father Diabetes mellitus [email or web address] Not available 02/18 16:03:03 Medical History Condition Response BLINDNESS N RHEUMATIC FEVER N MRSA N BACK INJECTIONS N INFECTIOUS DISEASE N HEART ARRHYTHMIA N LUNG DISEASE/DISORDER N ESRD N INSOMNIA N HISTORY OF DRUG ABUSE N RADIATION / CHEMOTHERAPY N COPD N HIGH CHOLESTEROL / HYPERLIPIDEMIA N EYE PROBLEMS N HYPERTHYROIDISM N PVD N BLOOD DISEASES N EDEMA N SURGERY N HYPOTHYROIDISM N SHINGLES N DEPRESSION (INCLUDING POST ) N HAVE YOU BEEN HOSPITALIZED OR SEEN IN [facility] ER IN THE PAST YEAR ? N [...] SNOMED-CT Code Diagnosis ICD10 Code Diagnosis Note [id number] Haley Breaux MD [facility] [address] [place] [address] 02/18/2023 15:40:48 02/18/2023 16:34:30 Well controlled type 2 diabetes mellitus 026842489 E11.9 a1c dropped from 11.6% down to [...] carb counting and nutritiona l guidance. Fatigue 64861993 R53.83 Will send for thyroid antibodies to screen for autoimmune thyroid disease in addition to CBC, CMP, ferritin and B12/folate to screen for other potential secondary causes of fatigue. Dyslipidemia 063497551 E 78.5 Send for lipid panel to [...] she chooses to go [facility] of [facility] to obtain labwork she was [...] Concerns Section Related Observation LastModified by Organization Detai ls LastModified Time None Recorded Concern Status LastModified by Organization Details LastModified Time None Recorded Advance Directives Directive None Recorded Payers Insurance Date Sequence Insurance Name Policy Number Policy Marques Covered Member ID Marques Member ID Guarantor Name 07/15/2023 1 [facility] (PPO[facility] [id number] Georgie Epps [id number] Georgie Epps 02/18/2023 1 *SELF PAY* Sabra fu Supriya Notes Date Note Type Note Provider Name [...] flow to feet) Haley Breaux MD [address] [facility], [facility] [address], [place], [address], [place] [employer] 02/18/2023 19:49:25 OBGyn Episode No OBEpisode recorded.
--- OUTSIDE RECORDS SUMMARY | 2025-04-07 10:53 | XMS_ITS | Clinical Summary ---
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
[2025-04-07 11:03] LABS: Basophils Percent Auto 0.5 % (0.2-1.2); Eosinophils Absolute Auto 0.1 K/mm3 (0-0.3); Eosinophils Percent Auto 3.2 % (0-4.4); Hematocrit 45.5 % (37.0-47.0); Hemoglobin 15.1 g/dL (12.0-15.0); Immature Granulocyte Absolute 0.01 K/mm3 (0.00-0.031); Immature Granulocyte Percent A 0.2 % (0-0.5); Immature Platelet Fraction Pct 3.2 % (0.9-11.2); Lymphocytes Absolute Auto 1.15 K/mm3 (0.9-3.2); Lymphocytes Percent Auto 26.6 % (18.3-44.2); Mean Corpuscular HGB Conc 33.2 g/dl (32-36); Mean Corpuscular Hemoglobin 29.8 pg (26-34); Mean Corpuscular Volume 89.9 fl (80-100); Mean Platelet Volume 10.7 fl (7.4-10.4); Monocytes Absolute Auto 0.3 K/mm3 (0.1-0.6); Neutrophils Absolute Auto 2.7 K/mm3 (1.3-6.7); Neutrophils Percent Auto 63.5 % (45.5-73.1); Platelet Count Result 91 k/mm3 (150-375); Red Blood Count 5.06 M/mm3 (4.2-5.4); White Blood Count 4.3 K/mm3 (4.5-10.0)
[2025-04-07 11:14] LABS: Alanine Aminotransferase 36 U/L (6-35); Albumin Level 4.6 g/dL (3.5-5.1); Alkaline Phosphatase 103 U/L (38-126); Anion Gap 9 mmol/L (4-12); Aspartate Amino Transferase 46 U/L (14-36); Blood Urea Nitrogen 14 mg/dL (7-17); Carbon Dioxide 27 mmol/L (22-30); Chloride 102 mmol/L (98-107); Cholesterol 170 mg/dL (0-200); Estimated Glomerular Filt Rate > 60; Glucose 128 mg/dL (65-110); HDL Direct 73 mg/dL; Hemoglobin A1C 5.5 % (<5.7); Potassium 4.1 mmol/L (3.4-5.0); Sodium 138 mmol/L (137-145); Triglycerides 79 mg/dL (<150)
[2025-04-07 11:21] LABS: INR 1.1; Prothrombin Time 14.5 Seconds (11.1-14.7)
[2025-04-07 11:25] LABS: LDL Cholesterol Direct 64 mg/dL
[2025-04-07 11:31] LABS: Vitamin D 25 Hydroxy 47.3 ng/mL
[2025-04-07 18:29] LABS: Creatinine Urine 188.9 mg/dL
[2025-04-07 18:34] LABS: MALB Creatinine Ratio 48.3 mg/g (0-30); Microalbumin Urine Random 91.2 mg/L (0-16.7)
[2025-04-11 07:03] LABS: Alpha Fetoprotein TumorMarker. 3.7 ng/mL
== END 2025-04-07 10:07 | disposition home or self-care (01) ==
PROVIDERS: Internal Medicine Gastroenterology; PCP Emergency Medicine; Referring Provider Nurse Practitioner; Visit Provider Emergency Medicine
DX: E78.5 Hyperlipidemia, unspecified (principal); I10 Essential (primary) hypertension; E11.9 Type 2 diabetes mellitus without complications; E55.9 Vitamin D deficiency, unspecified; K74.60 Unspecified cirrhosis of liver
CPT/HCPCS: 36415; 80053; 80061; 82043; 82105; 82306; 83036; 85025; 85055; 85610

== ENCOUNTER 2025-07-27 06:41 | Outpatient (CLI) | payer MEDICARE, SELFPAY ==
--- NOTE | ~2025-07-27 | MR_ITS ---
EXAMINATION: MR shoulder LT wo con DATE: 07/27/2025 07:57 INDICATION: Pain in left shoulder. TECHNIQUE: Magnetic resonance imaging (MRI) of the left shoulder was performed without intravenous contrast. Sequences included axial PD-weighted FS FSE, coronal oblique PD-weighted FS FSE and T2-weighted FS FSE, and sagittal oblique T2-weighted FS FSE and T1-weighted FSE. COMPARISON: None. FINDINGS: Coracoacromial arch: The acromion undersurface is curved in morphology (type II). There is mild acromioclavicular joint osteoarthritis. There is mild subacromial/subdeltoid bursitis. Rotator cuff: There is mild supraspinatus and infraspinatus tendinopathy. Teres minor tendon is normal. There is mild subscapularis tendinopathy. No tear. There is no asymmetric fatty atrophy of the rotator cuff muscle bellies. Biceps tendon and glenoid labrum: Biceps tendon is in bicipital groove. Intra-articular biceps tendon is normal. The glenoid labrum is unremarkable. Fluid: There is a small right humeral joint effusion. Bones/cartilage: There is cartilage surface irregularity of glenoid and humeral head. There are tiny osteophytes. IMPRESSION: 1. Mild rotator cuff tendinopathy. No tear. 2. Mild glenohumeral joint chondrosis. 3. Mild acromioclavicular joint osteoarthritis. 4. Small glenohumeral joint effusion. 5. Mild subacromial/subdeltoid bursitis. Reviewed, dictated and finalized at location E.
== END 2025-07-27 06:42 | disposition home or self-care (01) ==
PROVIDERS: PCP Emergency Medicine; Visit Provider Emergency Medicine
DX: M75.82 Other shoulder lesions, left shoulder (principal); M94.212 Chondromalacia, left shoulder; M19.012 Primary osteoarthritis, left shoulder; M25.412 Effusion, left shoulder; M75.52 Bursitis of left shoulder
CPT/HCPCS: 73221

== ENCOUNTER 2025-08-17 10:11 | Outpatient (CLI) | payer MEDICARE, SELFPAY ==
--- NOTE | ~2025-08-17 | XR_ITS ---
EXAMINATION: XR shoulder LT min 2V, 08/17/2025 10:30 CDT HISTORY: M25.512 - Pain in left shoulder COMPARISON: No comparisons available. Findings: No acute fracture or malalignment. Moderate degenerative changes Soft tissues unremarkable. Impression: No acute fracture or malalignment. Reviewed, dictated and finalized at location P. Impression: No acute fracture or malalignment.
--- OUTSIDE RECORDS SUMMARY | 2025-08-17 11:31 | XMS_ITS | Clinical Summary ---
Author Organization [facility] Address [address] [place] [address] Care Team Providers Care Lining Printer Name Role Phone Dustin Mahmood MD Primary [...] 1:42 PM CDT Height 177.8 cm (5' 10) 02/10/2023 1:42 PM CDT Body Mass Index [...] of 2) 2008 Well Visit 65+ 2023 Albumin Creatinine Ratio, Urine 05/12/2025 Lipid Panel 05/12/2025 05/12/2024 eGFR 05/12/2025 05/12/2024 Covid-19 Vaccine (5 - 2024-2 6 season) 2025 09/26/2022, 08/06/2021, 12/26/2020, Additional history exists Influenza Vaccine (#1) 2025 2, 08/06/2021, 07/24/2020, Additional history exists Procedures Procedure Name Priority Date/Time Associated Diagnosis [...] LAB URINE ORDERABLES Final R esult [facility] [address] [place] [address] * (ABNORMAL) Lipid panel (05/12/2024 10:41 AM [...] BLOOD ORDERABLES Final R esult [facility]ES[facility] [address] [place] [address] * eGFR (05/12/2024 10:40 AM CDT) eGFR [...] Re sult Performing Organization Address City/State/ZIP [place] Phone Number [facility] [address] [place] [address] from Last 3 Months or Most Recently Relevant to Health Maintenance Insurance [employer] [facility] Care Teams Lining Printer Relationship Specialty Start Date End Date Dustin Mahmood MD [address] [place] [address] PCP - General Emergency Medicine 01/15/23
--- OUTSIDE RECORDS SUMMARY | 2025-08-17 11:31 | XMS_ITS | Clinical Summary ---
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 Gender Identity Not on file Sexual Orientation Not on file Plan of Treatment Health Maintenance Due Date Last Done Comments Hepatitis C Virus (HCV) Screening 1960 TdaP Immunization 1960 Cologuard 2003 Colonoscopy 2003 Colorectal Cancer Screening 2003 Immunochemical Fecal Occult Blood 2003 Pneumococcal Immunization (5 0+ years) (1 of 1 - PCV) 2008 Zoster Immunization (1 of 2) 2008 Influenza Immunization (#1) 06/20/202507/20, 07/24/2020, 08/17/2019 SARS-COV-2 Immunization (2 - season) 2025 08/06/2021 Respiratory Syncytial Virus (RSV) Immunization (Adult) (1 - 1-dose 75+ series) 2033 Hepatitis B Immunization Aged Out No longer eligible based on patient's age to complete this topic Human Papillomavirus (HPV) Immunization Aged Out No longer eligible b ased on patient's age to complete this topic Meningococcal Immunization (ACWY) Aged Out No longer eligible b ased on patient's age to complete this topic Rotavirus Immunization Aged Out No lo nger eligible based on patient's age to complete this topic
--- OUTSIDE RECORDS SUMMARY | 2025-08-17 11:31 | XMS_ITS | Clinical Summary ---
Author Organization [facility] Address [address] [facility] [place] [address] Care Team Providers Care Steaming Machine Operator Name Role Phone Dustin Mahmood MD Primary Care Provider [phone] Source Comments [facility],non-[facility] Affiliates and Associated Physician Practices is amultiple site organization consisting of ambulatory clinics and hospital sitesin [place], [place], [place] and [place]. This disclosure is being madepursuant to the Care Everywhere program and may not contain all information available regarding this patient. Last updated 18.[facility] [employer] Allergies Active Allergy Reactions Criticality Noted Date [...] Active glimepiride (Amaryl) 1 MG tablet Take 1 (one) tablet by mouth as needed Sliding scale 4 Active Baqsimi One Pack 3 MG/DOSE POWD as needed 3 Active Glucose 4-6 GM-MG Take by mouth as needed 3 Active Ozempic, 0.25 or 0.5 MG/DOSE, 2 MG/3ML SOPN Inject 0.5 mg subcutaneously every 7 days (once a week) 5 Active Active Problems Problem Noted Date [...] with Dr. Mckeon. Plan follow-up as needed. Family History Medical History Relation Name Comments [...] on file Legal Sex Female 3:38 PM SERVICE DELIVERY ANALYST Gender Identity Not on file Sexual Orientation Not on file Last Filed Vital Signs Vital Sign Reading Time Taken Comments Blood Pressure 155/90 04/12/2025 12:02 PM CDT Pulse 83 04/12/2025 12:02 PM CDT Temperature 36.6 C (97.8 F) 04/12/2025 11:47 AM CDT Respiratory Rate 18 01/13/2025 10:2 0 AM CDT Oxygen Saturation 100% 04/12/2025 11: 47 AM CDT Inhaled Oxygen Concentration - - Weight 81.6 kg (179 lb 12.8 oz) 025 11:47 AM CDT Height 170.2 cm (5' 7) 04/12/2025 11:4 7 AM CDT Body Mass Index 28.16 04/12/2025 11:47 AM CDT Plan of Treatment Upcoming Encounters Date Type Department Care Team (Late st Contact Info) Description 10/28/2025 9:30 AM SERVICE DELIVERY ANALYST Appointment [facility] [address] [place] [phone] Daly Collier APRN-LIGHTING ADVISER [address] [place] [address] [address]L [place] [address] 10/28/2025 10:30 AM SERVICE DELIVERY ANALYST Office Visit [facility] - [address] [place] [address], [place] [phone] Daly Collier, UNIT DIRECTOR-LIGHTING ADVISER [address] [facility] 2L [place] [address] Health Maintenance Due Date Last Done Comments [...] SCREENING 12/19/2023 DIABETES-FOOT EXAM WITH MONOFILAMENT 12/19/2023 DEPRESSION SCREENING 10/20/2024 DIABETES - URINE PROTEIN SCREENING 10/20/2024 COVID-19 VACCINE ( season) 2025 12/26/2020, 12/05/2020 INFLUENZA VACCINE (#1) 2025 2, 08/06/2021, 07/24/2020, Additional history exists DIABETES-HGB A1C 10/07/2025 04/07/2025 DIABETES-SERUM CREATININE 04/07/20262024, 01/18/2025, 11/28/2023 HIB VACCINE Aged Out No longer [...] Author Medication Management General On track( 025 12:13 PM CDT) Dorie Luong, RN Note: Expected end date: Ongoing Interventions: Take all medications as prescribed Let your doctor know right away about any changes in your medications Make sure to request a refill of your medication at least one week prior to your last dose Procedures Procedure Name Priority Date/Time Associated Diagnosis Comments COMP MET PANEL (EXTERNAL RESULT ENTRY) Routine 04/07/2025 HEMOGLOBIN A1C (EXTERNAL RESULT ENTRY) Routine 04/07/2025 from Last 3 Months or Most Recently Relevant to Health Maintenance Results * COMP MET PANEL (EXTERNAL RESULT ENTRY) (04/07/2025) Glucose (EXTERNAL) 128 mg/dL Sodium (EXTERNAL RESULT) 138 mmol/L Potassium (EXTERNAL RESULT) 4.1 mmol/L Chloride (EXTERNAL RESULT) 102 mmol/L CO2 (EXTERNAL) 27 mmol/L Calcium (EXTERNAL RESULT) 10 mg/dL Anion Gap (EXTERNAL RESULT) 9 mmol/L BUN (EXTERNAL RESULT) 14 mg/dL Creatinine (EXTERNAL RESULT) 0.74 mg/dl Alkaline Phosphatase (EXTERNAL RESULT) 103 U/L ALT (EXTERNAL RESULT) 36 U/L AST (EXTERNAL RESULT) 46 U/L Protein Total (EXTERNAL RESULT) 8.0 gm/dL Albumin (EXTERNAL RESULT) 4.6 gm/dL Bilirubin Total (EXTERNAL RESULT) 1.0 mg/dL eGFR MDRD (EXTERNAL RESULT) eGFR (EXTERNAL) Blood BLOOD SPECIMEN / Unknown 04/07/2025 Historical Provider LAB - CHEMISTRY ORDERABLE S Final Result * HEMOGLOBIN A1C (EXTERNAL RESULT ENTRY) (04/07/2025) Hemoglobin A1c (EXTERNAL RESULT) 5.5 % Blood BLOOD SPECIMEN / Unknown 04/07/2025 Historical Provider LAB - CHEMISTRY ORDERABLE S Final Result from Last 3 Months or Most Recently Relevant to Health Maintenance Insurance [facility] Care Teams Steaming Machine Operator Relationship Specialty Start Date End Date Dustin Mahmood MD [facility] [address] PCP - General Internal Medicine 12/19/23
== END 2025-08-17 10:12 | disposition home or self-care (01) ==
PROVIDERS: PCP Emergency Medicine; Visit Provider Emergency Medicine
DX: M25.512 Pain in left shoulder (principal)
CPT/HCPCS: 73030

== ENCOUNTER 2025-08-22 09:47 | Outpatient (CLI) | payer MEDICARE, SELFPAY ==
--- NOTE | ~2025-08-22 | DEXA_ITS ---
Bone Density Report Name: DOUGLAS QUIJANO Age: 65 Sex: Female Ethnicity: White Date of : 1960 Indication: postmenopausal; screening for osteoporosis; height loss; cancer; hysterectomy; Referring Provider: EDGARDO SZYMANSKI Study: Bone densitometry was performed. Exam Date: August 22, 2025 Accession number: [id number] Bone Density: Region BMD T-score Z-score Classification AP Spine(L1-L4) 0.765 -2.6 -0.6 Osteoporosis Femoral Neck (Left) 0.605 -2.2 -0.6 Osteopenia Total Hip (Left) 0.807 -1.1 0.3 Osteopenia Femoral Neck (Right) 0.608 -2.2 -0.5 Osteopenia Total Hip (Right) 0.776 -1.4 0.0 Osteopenia Total Hip Mean 0.792 -1.3 0.2 Osteopenia World Health Organization criteria for BMD impression classify patients as: Normal (T-score at or above -1.0), Osteopenia (T-score between -1.0 and -2.5), or Osteoporosis (T-score at or below -2.5). 10-year Fracture Risk: FRAX not reported because: Some T-score for Spine Total or Hip Total or Femoral Neck at or below -2.5 Clinical Information Provided by Patient: Has the following medical conditions: Cancer, Hysterectomy Patient maximum height was 70 Menopause Age: 40 Drinks caffeinated beverages Onset of menses at age 11 Number of children 1 Impression: The patient has osteoporosis, based on the Total Spine T-score. Discussion: INCREASED RISK OF FRACTURE. BONE DENSITY IS UNDESIRABLY LOW AT ONE OR MORE SKELETAL SITES, CONSISTENT WITH POSTMENOPAUSAL OSTEOPOROSIS. This patient's lowest T-score meets the World Health Organization's (WHO) criteria for osteoporosis at one or more sites (T-score -2.5 or below). In untreated patients, the risk of osteoporotic fracture increases approximately two-fold for each 1.0 SD decrease in T-score. Low bone density is not the only risk factor for fracture; also consider factors such as patient's age, frailty or poor health, risk of falling, risk of injury, previous osteoporotic fracture, family history of osteoporosis, cigarette smoking, low body weight, etc. Not everyone with low bone mineral density has osteoporosis; osteomalacia and other metabolic bone disorders should also be considered. Patients who have osteoporosis should be evaluated for specific diseases and conditions (secondary causes) that may cause or contribute to bone loss. The [place] [employer] Clinical Endocrinologists (AACE) and National Osteoporosis Foundation (NOF) recommend pharmacologic intervention for all postmenopausal women whose T-score is in this range. The patient should follow a healthful lifestyle (good nutrition with adequate calcium and vitamin D, and appropriate weight-bearing exercise). Follow-Up: Consider a repeat BMD and Vertebral Fracture Assessment (VFA) exam in 2 years or sooner if medically necessary, to reassess this patient's status. Reported by: TERRANCE on 08/22/2025 10:25:00 AM. Reviewed, dictated and finalized at location A.
--- OUTSIDE RECORDS SUMMARY | 2025-08-22 10:35 | XMS_ITS | Data Portability ---
Author Organization [place] [facility], Main Office Address [address] [place] [address] Care Team Providers Care Support Services Tech Name Role Phone EDUINLD EDGARDO Primary Care Provider Assessment No assessment recorded. Plan of Treatment Reminders Order Date Submit Date Provider Last Modified By Organization Details Last Modified Time Details Appointments None recorded. Lab CMP, serum or plasma [address] (Lab), [address] [place] [address], [address], 3 16:24:36 HbA1c (hemoglobin A1c), blood [address] (Lab), [address] [place] [address], [address], 3 16:24:37 microalbumi n/creatinin e, mass ratio, urine [address] (Lab), [address] [place] [address], [address], 3 16:24:37 C-peptide, serum [address] (Lab), [address] [place] [address], [address], 3 16:24:36 lipid panel, serum [address] (Lab), [address] [place] [address], [address], 3 16:24:36 vitamin B12 + folate, serum or blood [address] (Lab), [address] [place] [address], [place], [address], 3 16:24:37 CBC w/ auto diff [address] (Lab), [address] [place] [address], [place], [address], 3 16:24:36 TSH + free T4, serum [address] (Lab), [address] [place] [address], [address], 3 16:24:37 T3, free, serum or plasma [address] (Lab), [address] [place] [address], [place], [address], 3 16:24:37 thyroid peroxidase (tpo) Ab, serum [address] (Lab), [address] [place] [address], [address], 3 16:24:36 iron + total iron-bindin g capacity (TIBC), serum [address] (Lab), [address] [place] [address], [address], 3 16:24:37 Referral diabetic nutrition education referral 2022 023 [facility] Diabetes Self-Manageme marisol Mejia, [address], [place], [address], 3 15:10:43 Procedures None recorded. Surgeries None recorded. Imaging None recorded. Medication Orders glimepiride 1 mg tablet 2022 023 [facility] #[id number], [address], [place], [place], [id number], 19:48:20 Patient TargetsNo targets recorded. Patient InstructionsNo instructions recorded. Reason for Referral Diabetic Nutrition Education Referral for Well controlled type 2 diabetes mellitus Referring Physician: Haley Breaux, Endocrinology, Encounter Date: 02/18/2023 Results Created Date Observation Date Name Description Value Unit Range Abnormal Flag Note LastModifiedBy Organization Detail LastModifiedTime Result Notes None recorded. Problems Name Problem SNOMED Code Status Onset Date Resolution Date Notes Provider Name and Address Organization Details Recorded Time Well controlled type 2 diabetes mellitus 643976113 Active 2022 Haley Breaux MD [address] [facility], [address] [address], [place], [address], [employer] 3 16:23:19 Fatigue 17506631 Active 2022 Haley Breaux MD [address] [facility], [address] [address], [place], [address], [employer] 3 16:23:31 Dyslipidemia 328664027 Active 2022 Haley Breaux MD [address] [facility], [address] [address], [place], [address], [employer] 3 16:23:55 Problem Notes None recorded. Procedures Surgical History Date Name Laterality Status Provider Name and Address Organization Details Recorded Time Hysterectomy completed Mounika Sorto CMA [employer] 02/18/2023 16:04:04 delivery completed Mounika Sorto CMA [facility] 02/18/2023 16:04:12 Imaging Results None recorded. Procedure Notes None recorded. Medical Equipment None Reported. Allergies Allergen ID Allergen Name Allergen Category Reaction Reaction Severity Criticality Documentation Date Start Date Code Code System Note Provider Name and Address Organization Details Recorded Time 78842 Product containin g penicilli n (product) medicatio n Not available Not available Not available 02/18/2023 30478 8001 SNOMED Mounika Sorto CMA null, [facility] 3 16:01:17 Medications Name Sig Start Date [...] Body height Body temperature Heart rate Systolic And Diastolic Provider Name and Address Organization Details Last Updated DateTime 3 46165.4 9 g 21.6 kg/m2 175.26 cm 97.6 [degF] 94 /min 124/84 mm[Hg] Mounika Sorto CMA [place] - [facility] [employer] [facility] 16:00:51 Social History None recorded. Functional Status Question Answer Note LastModified by Organization D etails LastModified Time What is your level of alcohol consumption? None [email or web address] Information not available 02/18/2023 Mental Status None recorded. Family History Relationship Description Onset Age of this Age Resolved Age Notes LastModified by Organization Details LastModified Time Father Diabetes mellitus [email or web address] Not available 02/18 16:03:03 Medical History Condition [...] HAVE YOU BEEN HOSPITALIZED OR SEEN IN [facility] ER IN THE PAST YEAR ? N [...] Diagnosis SNOMED-CT Code Diagnosis ICD10 Code Diagnosis IMO Codes Diagnosis Note [id number] Haley Breaux MD [facility] [address] [facility] [address] [place] [address] 02/18/2023 15:40:48 02/18/2023 16:34:30 Well controlled type 2 diabetes mellitus 514394714 E11.9 a1c dropped from 11.6% down to [...] carb counting and nutritiona l guidance. Fatigue 90236601 R53.83 Will send for thyroid antibodies to screen for autoimmune thyroid disease in addition to CBC, CMP, ferritin and B12/folate to screen for other potential secondary causes of fatigue. Dyslipidemia 348920182 E 78.5 Send for lipid panel to [...] she chooses to go outside of the [facility] to obtain labwork she was [...] Concerns Section Related Observation LastModified by Organization Mani ls LastModified Time None Recorded Concern Status LastModified by Organization Details LastModified Time None Recorded Advance Directives Directive None Recorded Payers Insurance Date Sequence Insurance Name Policy Number Policy Marques Covered Member ID Marques Member ID Guarantor Name 07/15/2023 1 [facility] (PP[facility] [id number] Georgie Epps [id number] Georgie Epps 02/18/2023 1 *SELF PAY* Sabra fu Supriya Notes Date Note Type Note Provider Name and Address Organization Details Recorded Time 02/18/2023 text/html 62 yo female referred to our clinic by courtesy of Dr. Mahmood for evaluation of type 2 DM (A1C [...] flow to feet) Haley Breaux MD [address] [facility], [facility] [address], [place], [address], [place] [employer] 02/18/2023 19:49:25 OBGyn Episode No OBEpisode recorded.
--- OUTSIDE RECORDS SUMMARY | 2025-08-22 10:35 | XMS_ITS | Clinical Summary ---
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
--- OUTSIDE RECORDS SUMMARY | 2025-08-22 10:35 | XMS_ITS | Clinical Summary ---
Author Organization [facility] Address [address] [place] [address] Care Team Providers Care Correctional Probation Officer Name Role Phone Dustin Mahmood MD Primary Care Provider [phone] Source Comments [facility],non-the rehabilitation institute Affiliates and Associated Physician Practices is amultiple site organization consisting of ambulatory clinics and hospital sitesin [place], [place], [place] and [place]. This disclosure is being madepursuant to the Care Everywhere program and may not contain all information available regarding this patient. Last updated 18.[facility] [employer] Allergies Active Allergy Reactions Criticality Noted Date [...] on file Legal Sex Female 3:38 PM RESERVATION AGENT Gender Identity Not on file Sexual Orientation [...] st Contact Info) Description 10/28/2025 9:30 AM RESERVATION AGENT Appointment [facility] [address] [place] [phone] Daly Collier APRN-DEGREASER OPERATOR [address] [place] [address] [address] [place] [address] 10/28/2025 10:30 AM RESERVATION AGENT Office Visit [facility] - [address] [place] [address], [place] [phone] Daly Collier, SKILLED HELPER-DEGREASER OPERATOR [address] [facility] [address] [place] [address] Health Maintenance Due Date Last [...] Recently Relevant to Health Maintenance Insurance MEDICARE [facility] Care Teams Correctional Probation Officer Relationship Specialty Start Date End Date Dustin Mahmood MD [facility] [address] [address] PCP - General Internal Medicine 12/19/23
--- OUTSIDE RECORDS SUMMARY | 2025-08-22 10:35 | XMS_ITS | Clinical Summary ---
Author Organization [facility] ([facility] at the [facility] Office Center Address [address] [place] [address] Care Team Providers Care Project Associate Name Role Phone Dustin Mahmood MD Primary [...] LAB URINE ORDERABLES Final R esult [facility] [address] [place] [address] * (ABNORMAL) Lipid panel (05/12/2024 10:41 AM [...] BLOOD ORDERABLES Final R esult [facility] [place] [address] [place] [address] * eGFR (05/12/2024 10:40 AM CDT) eGFR [...] Re sult Performing Organization Address City/State/ZIP Co ne Phone Number [place] [phone] [place] [address] from Last 3 Months or Most Recently Relevant to Health Maintenance [place] [address] [place] [address] [facility] Care Teams Project Associate Relationship Specialty Start Date End Date Dustin Mahmood MD [address] [place] [address] PCP - General Emergency Medicine 01/15/23
== END 2025-08-22 09:48 | disposition home or self-care (01) ==
LOC: ANHFOHIMG 09:48
PROVIDERS: PCP Emergency Medicine; Visit Provider Emergency Medicine
DX: Z78.0 Asymptomatic menopausal state (principal); M81.0 Age-related osteoporosis without current pathological fracture; M85.852 Other specified disorders of bone density and structure, left thigh; M85.851 Other specified disorders of bone density and structure, right thigh
CPT/HCPCS: 77080